=== PATIENT | female | born 1995 | race Hispanic/Latino ===

== ENCOUNTER 2025-01-21 09:03 | Inpatient (IN) | payer SELFPAY ==
[~2025-01-21] VITALS: Ht 157.5 cm; Wt 72.6 kg
--- NOTE | 2025-01-21 09:41 | EKG ---
[facility] Test Date: 2025-01-21 Test Time: 09:38:00 Pat Name: BERNABE BARNETT Department: [facility] Room: ED Gender: F Acid Loader: 0723 : 1995 Requested By: KAREN MAZARIEGOS Order Number: [id number] Reading MD: Richard Kerr Measurements Intervals [place] Rate: 60 P: 54 [place]: 137 QRS: 79 QRSD: 72 T: 44 QT: 389 QTc: 389 Interpretive Statements Sinus rhythm No previous ECG available for comparison Electronically Signed On 01-21-2025 17:33:39 CDT by Richard Kerr Please click the below link to view image of tracing.
[2025-01-21 10:00] LABS: BASOPHILS # (AUTO) 0.06 K/uL (0.00-0.20); BASOPHILS % (AUTO) 0.4 % (0.0-5.0); EOSINOPHILS # (AUTO) 0.04 K/uL (0.00-0.70); EOSINOPHILS % (AUTO) 0.3 % (0.0-8.0); HEMATOCRIT 41.2 % (36-48); IMMATURE GRANULOCYTE ABSOLUTE 0.04 K/uL (0-1); LYMPHOCYTES # (AUTO) 2.2 K/uL (1.0-4.8); LYMPHOCYTES % (AUTO) 16.4 % (21.0-51.0); MEAN CORPUSCULAR HEMOGLOBIN 28.3 pg (27.0-33.0); MEAN CORPUSCULAR HGB CONC 33.3 g/dL (32.0-36.0); MEAN CORPUSCULAR VOLUME 85.1 fL (79-99); MONOCYTES # (AUTO) 0.8 K/uL (0.1-1.0); MONOCYTES % (AUTO) 5.8 % (3.0-13.0); NEUTROPHILS # (AUTO) 10.3 K/uL (1.8-7.7); NEUTROPHILS % (AUTO) 76.8 % (40.0-77.0); PLATELET COUNT (AUTO) 360 K/uL (130-400); RED BLOOD CELL COUNT(AUTO) 4.84 MIL/uL (4.00-5.50); RED CELL DISTRIBUTION WIDTH 14.1 % (11.0-15.5); WHITE BLOOD COUNT (AUTO) 13.4 K/uL (4.8-10.8)
[2025-01-21 10:01] LABS: APPEARANCE,URINE CLEAR (CLEAR); BILIRUBIN,URINE NEGATIVE (NEGATIVE); COLOR,URINE LIGHT-YELLOW (YELLOW); GLUCOSE, URINE (UA) NEGATIVE (NEGATIVE); KETONES,URINE NEGATIVE (NEGATIVE); LEUKOCYTE ESTERASE ,URINE NEGATIVE Leu/uL (NEGATIVE); NITRATE,URINE 2+ (NEGATIVE); OCCULT BLOOD,URINE MODERATE (NEGATIVE); PROTEIN,URINE NEGATIVE (NEGATIVE); UROBILINOGEN,URINE 0.2 mg/dL (0.2-1.0)
[2025-01-21 10:04] LABS: ADD UA MICROSCOPIC YES
[2025-01-21 10:08] LABS: BACTERIA,URINE RARE /HPF (None Seen); MUCUS,URINE RARE LPF (None Seen); RBC,URINE 0-1 /HPF (0-1); SQUAMOUS EPITHELIAL CELL,UR RARE /HPF (0-2); WBC,URINE 0-1 /HPF (0-1)
[2025-01-21 10:11] LABS: CREATININE 0.5 mg/dL (0.5-1.0); POTASSIUM 3.7 mmol/L (3.5-5.1)
[2025-01-21 10:25] LABS: ALBUMIN 4.4 g/dL (3.5-5.0); BILIRUBIN,DIRECT 0.2 mg/dL (0.0-0.3); BILIRUBIN,TOTAL 1.2 mg/dL (0.2-1.0); TOTAL PROTEIN, SERUM 8.7 g/dL (6.0-8.3)
[2025-01-21 10:59] LABS: HCG,QUALITATIVE URINE POSITIVE (NEGATIVE)
--- NOTE | 2025-01-21 12:16 | HMCIMG ---
Exam Type: US OB <14 WEEKS Clinical Information: POSITIVE TEST, VAGINAL BLEEDING Comparison: None Findings: The uterus is normal in size and echogenicity. The endometrial lining is normal in thickness. No intrauterine or ectopic seen. The ovaries are normal in size and echogenicity. Vascular Doppler flow exam and spectral analysis of waveforms analysis is unremarkable bilaterally. There is preserved vascularity to both ovaries on Doppler evaluation. Specifically, there is no evidence of ovarian torsion. No free fluid is noted throughout the cul-de-sac. There are no adnexal abnormalities. No other significant abnormalities are seen. No fluid collections or masses or free fluid are identified in the pelvis. Impression: NORMAL EXAM. No evidence of uterine pathology. No evidence of adnexal abnormalities or ovarian torsion. No intrauterine or ectopic seen.
--- NOTE | 2025-01-21 12:24 | HMCIMG ---
Exam Type: US ABDOMINAL RUQ\E\LTD Clinical Information: RUQ abd pain r/o acute cholecystitis Comparison: None Findings: The liver shows normal echogenicity and size. No hepatic lesions are seen. Doppler evaluation shows patent portal and hepatic veins. The gallbladder shows cholelithiasis. No acute or chronic inflammation is noted. The gallbladder wall measures 3 mm No bile duct dilatation is noted. The common bile duct measures 4 mm. The right kidney measures 10.9 x 4.6 cm, and shows no hydronephrosis or calculi, masses or other abnormalities. The pancreas is suboptimally visualized. The aorta and inferior vena cava show no significant abnormalities. IMPRESSION: Cholelithiasis.
[2025-01-21] MEDS: acetaMINOPHEN 500 MG TABLET PO ONE (13:24)
--- NOTE | 2025-01-21 13:35 | ERN ---
General Chief Complaint: Abdominal Pain Stated Complaint: ABDOMINAL PAIN Time Seen by MD: 10:07 Time Seen by Midlevel: 10:07 Source: patient History of Present Illness Initial Comments The patient is a 29-year-old female with no significant past medical history presenting to the emergency department with right upper quadrant abdominal pain that has been ongoing since last night at a proximally a p.m.. The patient states her pain is in the epigastric region and radiates to her upper back. She also reports pain radiating up to her right shoulder. On arrival the pain is rated 10/10. She currently denies being and states she is on her menstrual cycle. Allergies: Coded Allergies: codeine (Unverified Allergy, Unknown, 01/21/25) Home Meds No Active Prescriptions or Reported Meds Past Medical History Past Medical History: Other Medical History Other: HX OF BLOODY STOOLS, COLON POLYPS Past Surgical History: None Female( History) LMP: January 15, 2025 ROS Dictation CONSTITUTIONAL: Negative except for HPI HEAD/FACE: Negative except for HPI EENT: Negative except for HPI RESPIRATORY: Negative except for HPI GASTROINTESTINAL/ABDOMINAL: Negative except for HPI GENITOURINARY: Negative except for HPI MUSCULOSKELETAL: Negative except for HPI INTEGUMENTARY: Negative except for HPI NEUROLOGICAL/PSYCH: Negative except for HPI HEMATOLOGIC/LYMPHATIC: Negative except for HPI All Systems Negative, Except as noted above. 13 point review of systems assessed and all negative except for above. Physical Exam Physical Exam Dictation Vital Signs reviewed General Appearance: Alert, oriented x 3, no acute distress, well developed, nourished. Head and Face: non-traumatic. Eyes: PERRL, pink conjunctivas, eyelid no trauma, anterior chamber with arcus senilis. Ears: Pinnas intact and no signs of trauma or erythema ear canals clear and no discharge TM no erythema Nose: No discharge, no bleeding. Oropharynx: Mouth normal, tongue pink, pharynx clear,no erythema, tonsils no exudates, no abscesses noted, mucous membrane moist Neck: Supple, non-tender, no thyromegaly, no masses, no JVD, no bruits Breast:Deferred Chest:No tenderness, no crepitus, no paradoxical movement, no retractions Lungs:Clear, well-ventilated, symmetric, no rales, no wheezing, no rhonchi, no stridor, good breath sounds bilaterally Heart: Regular rate, regular rhythm, no murmur, no gallops Vascular: no peripheral edema, Abdomen: Soft, positive bowel sounds, nondistended, no guarding, Right upper quadrant abdominal tenderness, no rebound, no masses no hepatomegaly, no splenomegaly, no Miller's sign, no hernias. Rectal: Deferred Genital: Deferred Neurological: Normal speech, motor function intact, sensory function intact Musculoskeletal: Neck nontender, full range of motion, back nontender, full range of motion, Extremities: nontender, full range of motion Skin: Color pink, dry, no turgor, no rash, no lacerations, no abrasions, no contusions. Lymphatic: Deferred Results Laboratory and Microbiology Lab and Micro Result Labs Reviewed?: Yes MDM MDM: The patient is a 29-year-old female with no significant past medical history presenting to the emergency department with right upper quadrant abdominal pain that has been ongoing since last night at a proximally a p.m.. The patient states her pain is in the epigastric region and radiates to her upper back. She also reports pain radiating up to her right shoulder. On arrival the pain is rated 10/10. She currently denies being and states she is on her menstrual cycle. On physical examination the patient appears uncomfortable secondary to pain. She has right upper quadrant/midepigastric abdominal tenderness with no rebound or guarding. Initial vital signs are stable. Abdominal workup was initiated. CBC shows leukocytosis with a left shift. Chemistries show a slightly elevated total bilirubin at 1.2 however the remainder of her blood work is unremarkable. She has a positive urine test. HCG quant was performed and it is 29. Both a pelvic ultrasound and a right upper quadrant ultrasound was performed. Pelvic ultrasound reveals a normal exam. No evidence of uterine pathology. No evidence of adnexal abnormalities or ovarian torsion. There was also no evidence of intrauterine or ectopic seen. A right upper quadrant ultrasound was performed. After the test was performed the invasive cardiovascular technologist informed me that there is a gallstone stuck in the gallbladder neck with gallbladder distention concerning for acute cholecystitis. The official report resulted which revealed cholelithiasis however patient is clinically in a lot of pain. On re-examination her pain is 8/10. She was given 1 g of Tylenol and will be admitted for further observation and management. Patient was also started on 1 g of ceftriaxone IV given that she has a urinary tract infection. Differential diagnosis: Rationale: Tests considered and ordered secondary to shared decision making include: Previous outside records reviewed: Old ER visits. Risk of complication and/or morbidity or mortality of patient management: None Medications-Per medication reconciliation Need for hospitalization: Patient does meet criteria for hospitalization. Need for emergency major/minor surgery: No There are no social concerns with this patient. Prescription drug management Prescriptions will include symptomatic care Patient's prior external medical records from other ER visits were reviewed by me as indicated. Prior testing and results from previous visits were reviewed. Prior tests were taken into account with medical decision making and resource utilization, independent historian/historians were used to obtain complete medical history. I independently interpreted the test that were performed, results were reviewed by me and considered findings on radiology if ordered. Medical management and examination interpretation discussions were had by me with other qualified healthcare professionals as indicated for the patient's care. ED Course [address] [id number] IMAGING REPORT Signed PATIENT: BERNABE BARNETT MR#: [id number] : 1995 SEX: F AGE: 29 LOCATION: [facility] ORDER 28 STATUS: [facility] REPORT#: [id number] SERVICE 26 REASON: POSITIVE TEST, VAGINAL BLEEDING ORDERING PHYSICIAN: ASHLI APARICIO PROCEDURE: OB <14 - US OB <14 WEEKS Exam Type: US OB <14 WEEKS Clinical Information: POSITIVE TEST, VAGINAL BLEEDING Comparison: None Findings: The uterus is normal in size and echogenicity. The endometrial lining is normal in thickness. No intrauterine or ectopic seen. The ovaries are normal in size and echogenicity. Vascular Doppler flow exam and spectral analysis of waveforms analysis is unremarkable bilaterally. There is preserved vascularity to both ovaries on Doppler evaluation. Specifically, there is no evidence of ovarian torsion. No free fluid is noted throughout the cul-de-sac. There are no adnexal abnormalities. No other significant abnormalities are seen. No fluid collections or masses or free fluid are identified in the pelvis. Impression: NORMAL EXAM. No evidence of uterine pathology. No evidence of adnexal abnormalities or ovarian torsion. No intrauterine or ectopic seen. DICTATED BY: GIAN PANDEY MD DATE: 01/21/251210 ELECTRONICALLY SIGNED BY: GIAN PANDEY MD DATE: 01/21/251215 DX & DISP Disposition: Inpatient Departure Impression: Primary Impression: Cholelithiasis Additional Impression: Urinary tract infection Condition: Stable Scripts No Active Prescriptions or Reported Meds Referrals: RICCI ALONSO DAIRY GRAZER (PCP) I have reviewed the case, and I agree with, Diagnosis and Plan I performed the substantive portion of the visit. I have reviewed and personally made and approve the management plan that is documented in the note by myself or the [place]. I acknowledge for responsibility for the patient's management plan. ASHLI APARICIO January 21, 2025 13:35 KAREN MAZARIEGOS DO January 22, 2025 07:55
[2025-01-21] MEDS: cefTRIAXone 1G VIAL IVPB ONE (14:00)
[2025-01-21] MEDS: 0.9%NACL 1000ML 1,000 ML IV ONE (14:00)
--- NOTE | 2025-01-21 15:57 | NUR ---
second attempt to contact [facility] no answer at this time
[2025-01-21] MEDS ORDERED: GLUCAGON 1MG KIT 1 MG ML IM PRN (16:00)
[2025-01-21] MEDS ORDERED: acetaMINOPHEN 325 MG TAB PO PRN ×3 (16:00)
[2025-01-21] MEDS ORDERED: PoTASSium chl 10% ELIXIR 20MEQ 20 MEQ/15 ML UDCUP PO PRN (16:00)
[2025-01-21] MEDS ORDERED: DEXTROSE 50%-WATER 50 ML DISP.SYRIN IV PRN (16:00)
[2025-01-21] MEDS ORDERED: PoTASSium chloRIDE 10MEQ SR 10 MEQ/TAB TAB.SR.24H PO PRN (16:00)
[2025-01-21] MEDS ORDERED: morPHINE 2 MG SYG IVP PRN (16:00)
[2025-01-21] MEDS ORDERED: guaiFENesin-DM 200/20MG 10ML PO PRN (16:00)
[2025-01-21] MEDS ORDERED: LACTULOSE 20 GM/30 ML UDCUP PO PRN (16:00)
[2025-01-21] MEDS ORDERED: MAG/ALUM/SIMETH 30 ML UDCUP PO PRN (16:00)
[2025-01-21] MEDS ORDERED: ondanSETRON 4MG INJ IV PRN (16:00)
[2025-01-21] MEDS ORDERED: NITROGLYCERIN 0.4 MG SL TAB SL PRN (16:00)
[2025-01-21] MEDS ORDERED: DiphenhydrAMINE HCL 50 MG/ML VIAL IV PRN (16:00)
[2025-01-21] MEDS ORDERED: MAGNESIUM 2GM PREMIX 50ML 50 ML IV PRN (16:00)
[2025-01-21] MEDS ORDERED: ZOLPidem TARTrate 5 MG TAB PO PRN (16:00)
[2025-01-21] MEDS ORDERED: FAMOTIDINE 20MG VIAL IV PRN (16:00)
[2025-01-21] MEDS ORDERED: ketOROlac 15MG/ML VIAL (15MG/ML) IV PRN (16:00)
[2025-01-21] MEDS ORDERED: hydrALAZine 20MG/ML VIAL IV PRN (16:00)
[2025-01-21] MEDS ORDERED: cefTRIAXone 1G VIAL 2 GM in 0.9%NACL 100ML 100 ML IV SCH (16:00)
[2025-01-21] MEDS ORDERED: PoTASSium chloRIDE 10MEQ/100ML 100 ML IV PRN (16:00)
--- NOTE | 2025-01-21 16:14 | HP ---
[facility] HISTORY AND PHYSICAL Date of Service: January 21, 2025 Time of Service: 16:05 PCP:Dr Stacy Earl Admitting: Dr Sharpe, Allergies: No Allergy Information Available, No Known Drug Allergies HISTORY OF PRESENT ILLNESS: [ Patient is 29 years old female with a past medical history of gestational diabetes, colon polyps, who came to emergency department with a complaint of of per quadrant abdominal pain radiating to her back to the right. Patient stated that this has been going on since last night that started afternoon and about 9:00 p.m. she took a Motrin but unfortunately did not help to relieve the pain. Patient repeated Motrin again about 11:00 p.m. but still discomfort state. Patient denies any urinary problems. Pain on arrival was 10/10. At this moment patient denies any shortness of breath, chest pain, nausea, vomiting or abdominal pain but she believes it is due to medication that she received in ER. Patient's test was positive with the patient stated that she is on her menstrual cycle at this moment. Patient is on six day today were normally her menstruation last 7 to 8 days. Patient denies any abnormalities with her menstruation. Most recent vital signs temperature 97.9 pulse 60 respiration 18 blood pressure 105/60 patient is on room air satting 100%. Sodium 142 potassium 3.7 GFR 132 creatinine 0.5 BUN nine bilirubin 1.2 AST 21 ALT 31 troponin negative x1 albumin 4.4 lipase 32 UA positive for leukocytosis. WBC 13.4 hemoglobin 13.7 hematocrit 41.2 platelets 360 Ultrasound abdomen showed cholelithiasis. Ob ultrasound showed no intrauterine or ectopic seen. Normal exam. Patient will be admitted under hospitalist care for further evaluation/recommendations. REVIEW OF SYSTEMS CONSTITUTIONAL: Denies fevers, chills, or night sweats. No unintentional weight loss reported. NEUROLOGICAL: Denies headache, amaurosis fugax, motor weakness, sensory deficit, vertigo/spinning sensation, gait abnormalities, or tremors. ENT: No hearing loss, otalgia, otorrhea, rhinitis, rhinorrhea, hoarseness, or sore throat. CARDIOVASCULAR: Denies any exertional angina, dyspnea on exertion, orthopnea, paroxysmal nocturnal dyspnea, palpitations, life-threatening arrhythmias, claudication. PULMONARY: Denies any shortness of breath, cough, phlegm/sputum, hemoptysis, pleuritic chest pain. SLEEP: Denies morning headaches, daytime somnolence or napping. Denies difficulty falling asleep, staying asleep, waking from sleep. Denies knowledge of snoring. GASTROINTESTINAL: Denies any type of dysphagia to either liquids or solids. Denies nausea, vomiting, pyrosis, early satiety, , diarrhea, constipation, or changes in stool consistency or caliber. Denies coffee-ground emesis, he matemesis, hematochezia, or melanotic stools. Complains of right upper quadrant abdominal pain radiating to her back GENITOURINARY: Denies frequency, urgency, nocturia, hematuria or incontinence (Storage/Irritative symptoms.) Low urinary stream, straining to void, urinary intermittency or hesitancy, splitting of the voiding stream, terminal dribbling. ENDOCRINOLOGIC: Denies polyuria, polydipsia, polyphagia or heat/cold intolerances. HEMATOLOGIC: Denies thrombophilia/previous clots, or coagulopathy/bleeding disorders. ONCOLOGIC: Denies personal history of malignancy. DERMATOLOGIC: Denies rashes or pruritus. PSYCHIATRIC: Denies any suicidal or homicidal ideation. Denies hallucinations. PAST MEDICAL HISTORY: [ Gestational diabetes, colon polyps ] PAST SURGICAL HISTORY: [ None ] PAST SOCIAL HISTORY: [ Patient denies smoking. Patient denies any drug illicit. Patient denies alcohol use ] FAMILY HISTORY: [ Patient lives at an with her and a child. Patient is independent ] Coded Allergies: codeine (Unverified Allergy, Unknown, 01/21/25) PHYSICAL EXAM GENERAL APPEARANCE: The patient is awake, alert, and oriented, in no acute cardiopulmonary distress. NEUROLOGICAL: Cranial nerves II-XII grossly intact. Motor is 5/5 in bilateral upper and lower extremities proximal to distal. No sensory deficits. HEENT: Face is symmetric. Pupils are equal and reactive. Extraocular movements are intact. NECK: Supple. No JVD. No thyromegaly. No submental, submandibular, pre- /postauricular, occipital or supraclavicular lymphadenopathy. CHEST: Normal chest expansion. No Telemetry. LUNGS: Absence of any rales, rhonchi or any wheezing. CARDIOVASCULAR: Regular. S1 and S2 normal. No appreciable rubs, murmurs or gallops. ABDOMEN: Soft, nontender, and nondistended. There is no rebound, voluntary guarding, or rigidity. : Deferred. No [place]orman. EXTREMITIES: Non-edematous and not cyanotic. No clubbing. Good capillary refill. SKIN: No skin breakdown. Vital Sign (Last 24 Hours) 01/21/25 15:38 Temp 97.9 Pulse 60 Resp 18 B/P (MAP) 105/60 Pulse Ox 100 O2 Delivery Room Air* O2 Flow Rate 0 FiO2 21 LABS: Laboratory: Test 01/21/25 11:20 01/21/25 09:37 Range/Units Human Chorionic Gonadotropin, Quant 29 H 0-5 mIU/mL White Blood Count 13.4 H 4.8-10.8 K/uL Red Blood Count 4.84 4.00-5.50 MIL/uL Hemoglobin 13.7 12.0-16.0 g/dL Hematocrit 41.2 36-48 % Mean Corpuscular Volume 85.1 79-99 fL Mean Corpuscular Hemoglobin 28.3 27.0-33.0 pg Mean Corpuscular Hemoglobin Concent 33.3 32.0-36.0 g/dL Red Cell Distribution Width 14.1 11.0-15.5 % Platelet Count 360 130-400 K/uL Mean Platelet Volume 9.7 7.5-10.5 fL Immature Granulocyte % (Auto) 0.3 0-1 % Neutrophils (%) (Auto) 76.8 40.0-77.0 % Lymphocytes (%) (Auto) 16.4 L 21.0-51.0 % Monocytes (%) (Auto) 5.8 3.0-13.0 % Eosinophils (%) (Auto) 0.3 0.0-8.0 % Basophils (%) (Auto) 0.4 0.0-5.0 % Neutrophils # (Auto) 10.3 H 1.8-7.7 K/uL Lymphocytes # (Auto) 2.2 1.0-4.8 K/uL Monocytes # (Auto) 0.8 0.1-1.0 K/uL Eosinophils # (Auto) 0.04 0.00-0.70 K/uL Basophils # (Auto) 0.06 0.00-0.20 K/uL Absolute Immature Granulocyte (auto 0.04 0-1 K/uL Nucleated Red Blood Cells 0.0 0.0-0.19 % Urine Color LIGHT-YELLOW YELLOW Urine Appearance CLEAR CLEAR Urine pH 7.0 5.0-8.0 Urine Specific Sophia 1.012 1.001-1.031 Urine Protein NEGATIVE NEGATIVE mg/dL Urine Glucose (UA) NEGATIVE NEGATIVE mg/dL Urine Ketones NEGATIVE NEGATIVE mg/dL Urine Occult Blood MODERATE H NEGATIVE Urine Nitrate 2+ H NEGATIVE Urine Bilirubin NEGATIVE NEGATIVE mg/dL Urine Urobilinogen 0.2 0.2-1.0 mg/dL Urine Leukocyte Esterase NEGATIVE NEGATIVE Arely/uL Urine RBC 0-1 0-1 /HPF Urine WBC 0-1 0-1 /HPF Urine Squamous Epithelial Cells RARE 0-2 /HPF Urine Bacteria RARE None Seen /HPF Urine HCG, Qualitative POSITIVE H NEGATIVE Sodium Level 142 136-145 mmol/L Potassium Level 3.7 3.5-5.1 mmol/L Chloride Level 104 101-111 mmol/L Carbon Dioxide Level 27 21-32 mmol/L Blood Urea Nitrogen 9 7-18 mg/dL Creatinine 0.5 0.5-1.0 mg/dL Glomerular Filtration Rate Calc 132 >90 mL/min Random Glucose 94 70-105 mg/dL Total Calcium 9.6 8.5-10.1 mg/dL Total Bilirubin 1.2 H 0.2-1.0 mg/dL Direct Bilirubin 0.2 0.0-0.3 mg/dL Aspartate Amino Transf (AST/SGOT) 21 10-37 U/L Alanine Aminotransferase (ALT/SGPT) 31 12-78 U/L Alkaline Phosphatase 132 50-136 U/L Troponin I High Sensitivity < 4 L 4-50 ng/L Total Protein 8.7 H 6.0-8.3 g/dL Albumin 4.4 3.5-5.0 g/dL Lipase 32 16-77 U/L Current Medications Medications (Trade) Dose Ordered Sig/Jorge L Route PRN Reason Start Time Stop Time Status Last Admin Dose Admin Acetaminophen (TYLenol 325MG TAB) 650 mg Q4H PRN PO MILD PAIN (1-3) 01/21/25 16:00 02/20/25 15:59 Acetaminophen (TYLenol 325MG TAB) 650 mg Q6H PRN PO MILD PAIN (1-3) 01/21/25 16:00 01/21/25 15:56 DC Acetaminophen (TYLenol 325MG TAB) 650 mg Q6H PRN PO TEMPERATURE GREATER THAN 101.5 01/21/25 16:00 02/20/25 15:59 Al Hydroxide/Mg Hydroxide (MAALox PLUS 30ML) 30 ml Q6H PRN PO INDIGESTION 01/21/25 16:00 02/20/25 15:59 Ceftriaxone Sodium 2 gm/ Sodium Chloride 100 ml @ 200 mls/hr Q24H IV 01/21/25 16:00 01/21/25 15:56 DC Ceftriaxone Sodium (Rocephin 2gm Inj) 2 gm Q24H IVPB 01/21/25 16:00 01/31/25 15:59 Dextrose (D50w) 50 ml AD PRN IV HYPOGLYCEMIA PROTOCOL 01/21/25 16:00 02/20/25 15:59 Diphenhydramine HCl (BENAdryl INJ) 25 mg Q6H PRN IV SEVERE ITCHING/RASH 01/21/25 16:00 02/20/25 15:59 Famotidine (Pepcid 20mg Vial) 20 mg BID IV 01/21/25 21:00 02/20/25 20:59 Famotidine (Pepcid 20mg Vial) 20 mg BID PRN IV NAUSEA/VOMITING 01/21/25 16:00 01/21/25 15:56 DC Glucagon (Glucagon 1mg Kit) 1 mg AD PRN IM HYPOGLYCEMIA PROTOCOL 01/21/25 16:00 02/20/25 15:59 Guaifenesin/ Dextromethorphan (RobiTUSSin DM 200/20MG 10ML) 10 ml Q4H PRN PO COUGH 01/21/25 16:00 02/20/25 15:59 Hydralazine HCl (APRESOLine 20MG INJ) 10 mg Q6H PRN IV For:SBP above 160;DBP above 90 01/21/25 16:00 02/20/25 15:59 Insulin Human Regular (humuLIN R 100 UNIT/ML 3ML) INSULIN SLIDING SCAL... ACHS SQ 01/21/25 16:30 02/20/25 16:29 Ketorolac Tromethamine (toRADol) 15 mg Q8H PRN IV MODERATE PAIN (4-6) 01/21/25 16:00 01/26/25 15:59 Lactulose (Constulose 20gm/ 30ml Udcup) 20 gm BID PRN PO CONSTIPATION 01/21/25 16:00 02/20/25 15:59 Magnesium Sulfate 50 ml @ 0 mls/hr PROTOCOL PRN IV other 01/21/25 16:00 02/20/25 15:59 Morphine Sulfate (morPHINE 2MG SYG) 1 mg Q4H PRN IVP SEVERE PAIN (7-10) 01/21/25 16:00 01/28/25 15:59 Nitroglycerin (Nitrostat) 0.4 mg PROTOCOL PRN SL CHEST PAIN 01/21/25 16:00 02/20/25 15:59 Ondansetron HCl (zoFRAN 4MG INJ) 4 mg Q6H PRN IV NAUSEA/VOMITING 01/21/25 16:00 02/20/25 15:59 Potassium Chloride 100 ml @ 100 mls/hr AD PRN IV POTASSIUM PROTOCOL 01/21/25 16:00 02/20/25 15:59 Potassium Chloride (K-Dur 10meq Sr Tab) 10 meq AD PRN PO POTASSIUM PROTOCOL 01/21/25 16:00 02/20/25 15:59 Potassium Chloride (KCl 10% Elixir 20meq/15ml) 10 meq AD PRN PO POTASSIUM PROTOCOL 01/21/25 16:00 02/20/25 15:59 Sodium Chloride 1,000 ml @ 100 mls/hr Q10H IV 01/21/25 16:00 02/20/25 15:59 Zolpidem Tartrate (AmbIEN) 5 mg HS PRN PO INSOMNIA 01/21/25 16:00 02/20/25 15:59 DIAGNOSTICS / RADIOLOGY: [ ] ASSESSMENT: [ Suspect Acute cholecystitis POA Acute cholelithiasis POA Acute complicated cystitis POA Electrolyte imbalance hypokalemia K3.7 Leukocytosis POA History of gestational diabetes History of colon polyps ] PLAN: [ Admit to: Medical-surgical floor Consults: General surgeon Antibiotics: Rocephin Tests: HIDA scan, CT abdomen/pelvis NEURO: Minimize central acting medications as possible. Fall Precautions. Well lighted room through the day and minimize interruptions through the night to prevent acute delirium. PULMONARY: Supplemental 02 as needed BiPAP as necessary, for respiratory distress Titrate Fio2 to keep Spo2 > or = 90% DuoNebs and CPT as needed IS hourly while awake for pulmonary hygiene Out of bed to chair as tolerated VAP Bundle Maintain aspiration precautions at all times CARDIOVASCULAR: Follow hemodynamics. Vital signs per facility protocol GI & NUTRITION: HIDA scan pending CT abdomen/pelvis pending Ultrasound abdomen cholelithiasis, cholecystitis Ultrasound uterus negative Continue nutritional support Aspirations precautions Prokinetic agents and laxatives as needed KIDNEYS & ELECTROLYTES: Strict monitoring of intake and output Daily weights Avoid nephrotoxic agents Monitor electrolytes and replace as needed Goal urine output of 30mL/hr or 0.5mL/kg/hr Medications to be dosed according to renal function. Avoid contrast if possible ENDOCRINE: Maintain blood glucose between 100-180 at all times. Insulin sliding scale for blood glucose management Hypoglycemia and hyperglycemia protocol in place INFECTIOUS DISEASE: Trend temperature, WBC and procalcitonin level Follow cultures, deescalate antibiotics as soon as possible. Panculture if new onset fever HEMATOLOGY & COAGULATION: Monitor H&H. Keep Hgb > 7 Transfuse 1 unit of PRBC for Hgb < 7 Transfuse 1 pack of platelets of platelets < 20, 000 Watch for any signs and symptoms of bleeding SKIN: Pressure ulcer prevention per facility protocol Specialty mattress as needed Treatment plan discussed with patient and family at the bedside Medications to be reconciled once obtained by patient and/or family and available to be reconciled in computer p.r.n. medication for pain nausea and vomiting Questions were answered We will continue to monitor the patient closely Covered Button Maker for disposition Rehab: PT/OT GI: PPI DVT: SCD's Code Status: Full Resuscitation Disposition: TBD Prognosis: Guarded ] ADVANCED CARE PLANNING 1. Which of the following were discussed? Hospice Care - Yes / No Therapeutic options - Yes / No Advance Directives - Yes / No Other discussions - 2. Discussed with who? Patient 3. Voluntary nature of this service was explained to the patient? Yes / No 4. Amount of time spent - ___ more than 35 minutes ____ 5. Reviewed by Physician? (if this service was performed by NPP) Yes / No ADDENDUM: ATTENDING PHYSICIAN ATTESTATION: I have reviewed the midlevel's plan. I have independently seen, reviewed the chart and made my own assessment of the patient. See my addendum for updates to the midlevel's medical plan MD REBECCA Bourne KATARZYNA B EXTR[employer]ION DIE REPAIRER January 21, 2025 16:14 FATEMEH SHARPE MD January 23, 2025 14:10
--- NOTE | 2025-01-21 16:16 | NUR ---
spoke with juan diego jo and informed him op pend order and fasting status
[2025-01-21] MEDS: INSULIN humuLIN R 100 UNIT/ML 3ML SQ SCH (16:30)
--- NOTE | 2025-01-21 16:58 | NUR ---
miscommunication by BANDER AND CELLOPHANER MACHINE Luis informed pt ok to eat contacted [facility] and advised them of intake and was advised by juan diego gutierrez to be completed tomorrow
--- NOTE | 2025-01-21 17:00 | HMCIMG ---
Exam Type: CT ABDOMEN/PELVIS W/O CONTRAST Clinical Information: cholecystitis Comparison: None CT Dose Index (CTDI): 10.20 mGy Dose Length Product (DLP): 530.00 total mGy-cm PROTOCOL: Routine noncontrast helical scanning of the abdomen and pelvis was performed at 5mm collimation. Findings: No evidence of nephro or ureterolithiasis is found. No hydronephrosis or ureteral dilatation is seen. The lung bases are clear. The stomach is unremarkable. It shows no wall thickening. No gross ulceration is seen. It is not overly distended. There are no surrounding inflammatory changes. No wall lesions are identified to suggest cancer. The spleen is unremarkable. It is not enlarged. The pancreas shows normal anatomy. It is not fatty replaced. It shows no lesions. The pancreatic duct is not dilated. Cholelithiasis without hydropic gallbladder. No pericholecystic fluid or gallbladder wall thickening to suggest inflammatory change. The adrenal glands are unremarkable. There is no enlargement. No lesions are noted. The liver is unremarkable. It shows no focal masses. The appendix is unremarkable. It shows no evidence of inflammation. No appendicolith is seen. The small bowel is unremarkable. There is no evidence of dilatation to suggest obstruction. No evidence of adynamic ileus is seen. There is no small bowel wall thickening to suggest enteritis. The colon is unremarkable. The urinary bladder is unremarkable. There is no wall thickening to suggest tumor or inflammation. There are no intraluminal calculi. There are no diverticula. There is no evidence of chronic bladder outlet obstruction. There is no evidence of urinary bladder distention to suggest urinary retention. The other pelvic structures are unremarkable. The bony and vascular structures are unremarkable for the patient's age. IMPRESSION: Cholelithiasis without hydropic gallbladder. This study was performed using dose reduction techniques to include automated exposure control and/or adjustment of the mA and/or kV according to patient size.
[2025-01-21] MEDS: cefTRIAXone 2GM VIAL IVPB SCH (17:02)
[2025-01-21] MEDS: PoTASSium chloRIDE 20MEQ ER 20 MEQ ERTAB PO ONE (17:02)
[2025-01-21] MEDS: 0.9%NACL 1000ML 1,000 ML IV SCH (17:02)
[2025-01-21 17:45] VITALS: BP 109/76; PULSE 76; RESP 18; TEMP 97.4
--- NOTE | 2025-01-21 17:45 | NUR ---
arrived from ER patient alert and oriented x4, family at bedside, vitals stable on room air, "abdominal discomfort, but mild", denies need for pain medication at this time
[2025-01-21 19:33] VITALS: O2SAT 95
[2025-01-21 19:55] VITALS: O2SAT 98
[2025-01-21] MEDS: FAMOTIDINE 20MG VIAL IV SCH (19:58)
[2025-01-21 20:00] VITALS: BP 107/62; PULSE 89; RESP 18; TEMP 97.6
[2025-01-21 21:15] VITALS: BP 108/71; PULSE 88
[2025-01-22] VITALS (7 sets, daily range): BP systolic 104–118; BP diastolic 51–70; PULSE 68–82; RESP 17–20; TEMP 97.9–98.9; O2SAT 99
[2025-01-22 04:33] LABS: BASOPHILS # (AUTO) 0.05 K/uL (0.00-0.20); BASOPHILS % (AUTO) 0.7 % (0.0-5.0); EOSINOPHILS # (AUTO) 0.11 K/uL (0.00-0.70); EOSINOPHILS % (AUTO) 1.5 % (0.0-8.0); HEMATOCRIT 33.8 % (36-48); IMMATURE GRANULOCYTE ABSOLUTE 0.04 K/uL (0-1); LYMPHOCYTES % (AUTO) 27.6 % (21.0-51.0); MEAN CORPUSCULAR HEMOGLOBIN 28.7 pg (27.0-33.0); MEAN CORPUSCULAR HGB CONC 33.1 g/dL (32.0-36.0); MEAN CORPUSCULAR VOLUME 86.7 fL (79-99); MONOCYTES # (AUTO) 0.8 K/uL (0.1-1.0); MONOCYTES % (AUTO) 10.8 % (3.0-13.0); NEUTROPHILS # (AUTO) 4.2 K/uL (1.8-7.7); NEUTROPHILS % (AUTO) 58.8 % (40.0-77.0); PLATELET COUNT (AUTO) 299 K/uL (130-400); RED CELL DISTRIBUTION WIDTH 14.4 % (11.0-15.5); WHITE BLOOD COUNT (AUTO) 7.2 K/uL (4.8-10.8)
[2025-01-22 04:37] LABS: HEMOGLOBIN A1C 5.3 % (4.0-6.0)
[2025-01-22 04:50] LABS: ALBUMIN 3.3 g/dL (3.5-5.0); BILIRUBIN,DIRECT 0.1 mg/dL (0.0-0.3); BILIRUBIN,TOTAL 0.8 mg/dL (0.2-1.0); CREATININE 0.6 mg/dL (0.5-1.0); POTASSIUM 4.8 mmol/L (3.5-5.1); TOTAL PROTEIN, SERUM 6.8 g/dL (6.0-8.3)
--- NOTE | 2025-01-22 09:22 | NUR ---
RAD HIDA SCAN: PER KEVIN PAYNE, EXAM ON HOLD. HCG WILL BE REPEATED. KIRTI
--- NOTE | 2025-01-22 09:58 | NUR ---
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 Pt reports she lives a home with her [phone]. Pt states she is independent of all her ADLS, drives, active, uses no DME to in home care services. PCP is Stacy Brandon and uses [facility] for rx needs. Pt and deny dc needs and will report home at ga. Addendum: 01/22/25 at 1003 by ANASTASIIA BARTLETT SS Amended: Links added.
[2025-01-22] MEDS: ZOSYN 3.375GM +NS 50ML IV SCH (11:32)
--- NOTE | 2025-01-22 11:43 | NUR ---
RAD HIDA SCAN: @ 1143HRS PER KEVIN PAYNE; PT IS REFUSING HIDA SCAN NO MATTER WHAT THE HCG RESULTS TURNED OUT. DG
[2025-01-22] MEDS: DEXTROSE 50%-WATER 50 ML DISP.SYRIN IV ONE (13:33)
[2025-01-22] MEDS: DEXTROSE 5 %-0.45 % NACL 1,000 ML IV SCH (13:34)
--- NOTE | 2025-01-22 16:28 | CONS ---
CONSULT NOTE: Consulting physician:Dr Stack Consulting service: General surgery Reason for consultation: Cholelithiasis History of present illness: This is a 29-year-old female with a medical history listed below that has been consulted to surgery after presenting to the hospital with the upper quadrant pain radiating to her back that began yesterday at nine in the evening. Due to continued discomfort patient presented to the hospital for further evaluation. Upon initial workup patient noted to have positive hCG quant and urinalysis as well as blood draws. Patient reports currently spotting. OBGYN has also been consulted for evaluation. Since admission patient has been made NPO but reporting no abdominal pain on physical exam. WBCs initially elevated on presentation but now down to normal. LFTs unremarkable. Patient currently NPO Medical history: PAST MEDICAL HISTORY: Gestational diabetes, colon polyps PAST SURGICAL HISTORY: None PAST SOCIAL HISTORY: Patient denies smoking. Patient denies any drug illicit. Patient denies alcohol use FAMILY HISTORY: Patient lives at an with her and a child. Patient is independent Coded Allergies: codeine (Unverified Allergy, Unknown, 01/21/25) Review of systems: General: No Fever, No Chills, No Night Sweats, No Fatigue, No Malaise, No Appetite, No Other HEENT: No Head Aches, No Visual Changes, No Eye Pain, No Ear Pain, No Dysphasia, No Sinus Congestion, No Post Nasal Drip, No Sore Throat, No Other Pulmonary: No Dyspnea, No Cough, No Pleuritic Chest Pain, No Other Cardiovascular: No: Chest Pain, Palpitations, Orthopnea, Paroxysmal No Dyspnea, Edema, Lt Headedness, Other Gastrointestinal: No: Nausea, Vomiting, Diarrhea, Constipation, Melena, Hematochezia, Other Genitourinary: No Dysuria, No Frequency, No Incontinence, No Hematuria, No Retention, No Other Musculoskeletal: No: other, neck pain, shoulder pain, arm pain, back pain, hand pain, leg pain, foot pain Skin: No Urticaria, No Rash, No Other Neurological: No: Weakness, Numbness, Incoordination, Change in speech, Confusion, Seizures, Other Physical exam: General: Awake alert and oriented Heart: Regular rate and rhythm} Lungs: Clear to auscultation no distress Abdomen: [Soft, nontender, nondistended No abdominal pain on exam Assessment: This is a 29-year-old female with concerns of possible early gestation with possible symptomatic cholelithiasis Plan: This point in time we will await for OBGYN input Surgery would like to order HIDA scan if patient becomes symptomatic but at this point showing no signs of cholecystitis with no discomfort on abdominal exam so we will hold and wait on OBGYN recommendation From surgical standpoint patient cleared to start diet SARAH SUE Jr. January 22, 2025 16:28
--- NOTE | 2025-01-22 18:24 | PN ---
[facility] PROGRESS NOTE Date of Service: January 22, 2025 Time of Service: 18:02 SUBJECTIVE: 01/22 patient seen at bedside, no acute events overnight. Patient asymptomatic today. General surgery recommendations still pending. Quantitative HCG with slight uptrend from yesterday to today, will repeat again tomorrow. Patient believes she had miscarriage, however if uptrend continues will recommend she follow up with her OBGYN. If patient remains asymptomatic tomorrow, will likely discharge home to follow up outpatient for elective cholecystectomy. REVIEW OF SYSTEMS 12 point ROS negative unless noted in HPI PHYSICAL EXAM GENERAL APPEARANCE: The patient is awake, alert, and oriented, in no acute cardiopulmonary distress. NEUROLOGICAL: Cranial nerves II-XII grossly intact. Motor is 5/5 in bilateral upper and lower extremities proximal to distal. No sensory deficits. HEENT: Face is symmetric. Pupils are equal and reactive. Extraocular movements are intact. NECK: Supple. No JVD. No thyromegaly. No submental, submandibular, pre- /postauricular, occipital or supraclavicular lymphadenopathy. CHEST: Normal chest expansion. No Telemetry. LUNGS: Absence of any rales, rhonchi or any wheezing. CARDIOVASCULAR: Regular. S1 and S2 normal. No appreciable rubs, murmurs or gallops. ABDOMEN: Soft, nontender, and nondistended. There is no rebound, voluntary guarding, or rigidity. : Deferred. No Dorman. EXTREMITIES: Non-edematous and not cyanotic. No clubbing. Good capillary refill. SKIN: No skin breakdown. Vital Signs (last 8hr) Date Time Temp Pulse Resp B/P (MAP) Pulse Ox O2 Delivery O2 Flow Rate FiO2 01/22/25 16:27 98.4 77 18 104/67 99 Room Air 01/22/25 11:50 99.0 72 19 117/60 100 Room Air LABS: Laboratory: Test 01/22/25 16:10 01/22/25 10:15 01/22/25 04:07 01/21/25 09:37 Range/Units Whole Blood Glucose 72 70-110 MG/DL Urine HCG, Qualitative POSITIVE H NEGATIVE White Blood Count 7.2 # 4.8-10.8 K/uL Red Blood Count 3.90 L 4.00-5.50 MIL/uL Hemoglobin 11.2 L 12.0-16.0 g/dL Hematocrit 33.8 L 36-48 % Mean Corpuscular Volume 86.7 79-99 fL Mean Corpuscular Hemoglobin 28.7 27.0-33.0 pg Mean Corpuscular Hemoglobin Concent 33.1 32.0-36.0 g/dL Red Cell Distribution Width 14.4 11.0-15.5 % Platelet Count 299 130-400 K/uL Mean Platelet Volume 9.6 7.5-10.5 fL Immature Granulocyte % (Auto) 0.6 0-1 % Neutrophils (%) (Auto) 58.8 40.0-77.0 % Lymphocytes (%) (Auto) 27.6 21.0-51.0 % Monocytes (%) (Auto) 10.8 3.0-13.0 % Eosinophils (%) (Auto) 1.5 0.0-8.0 % Basophils (%) (Auto) 0.7 0.0-5.0 % Neutrophils # (Auto) 4.2 1.8-7.7 K/uL Lymphocytes # (Auto) 2.0 1.0-4.8 K/uL Monocytes # (Auto) 0.8 0.1-1.0 K/uL Eosinophils # (Auto) 0.11 0.00-0.70 K/uL Basophils # (Auto) 0.05 0.00-0.20 K/uL Absolute Immature Granulocyte (auto 0.04 0-1 K/uL Nucleated Red Blood Cells 0.0 0.0-0.19 % Sodium Level 141 136-145 mmol/L Potassium Level 4.8 3.5-5.1 mmol/L Chloride Level 108 101-111 mmol/L Carbon Dioxide Level 27 21-32 mmol/L Blood Urea Nitrogen 9 7-18 mg/dL Creatinine 0.6 0.5-1.0 mg/dL Glomerular Filtration Rate Calc 126 >90 mL/min Random Glucose 101 70-105 mg/dL Hemoglobin A1c 5.3 4.0-6.0 % Estimated Average Glucose (eAG) 105 70-126 mg/dL Lactic Acid Level 0.9 0.8-2.5 mmol/L Total Calcium 8.4 L 8.5-10.1 mg/dL Magnesium Level 2.00 1.80-2.40 mg/dL Total Bilirubin 0.8 # 0.2-1.0 mg/dL Direct Bilirubin 0.1 # 0.0-0.3 mg/dL Aspartate Amino Transf (AST/SGOT) 19 10-37 U/L Alanine Aminotransferase (ALT/SGPT) 23 # 12-78 U/L Alkaline Phosphatase 106 50-136 U/L Total Creatine Kinase 49 21-232 U/L B-Type Natriuretic Peptide 15 0-100 pg/mL Total Protein 6.8 # 6.0-8.3 g/dL Albumin 3.3 #L 3.5-5.0 g/dL Procalcitonin < 0.05 L 0.05-0.5 ng/mL Human Chorionic Gonadotropin, Quant 32 H 0-5 mIU/mL Urine Color LIGHT-YELLOW YELLOW Urine Appearance CLEAR CLEAR Urine pH 7.0 5.0-8.0 Urine Specific Clark 1.012 1.001-1.031 Urine Protein NEGATIVE NEGATIVE mg/dL Urine Glucose (UA) NEGATIVE NEGATIVE mg/dL Urine Ketones NEGATIVE NEGATIVE mg/dL Urine Occult Blood MODERATE H NEGATIVE Urine Nitrate 2+ H NEGATIVE Urine Bilirubin NEGATIVE NEGATIVE mg/dL Urine Urobilinogen 0.2 0.2-1.0 mg/dL Urine Leukocyte Esterase NEGATIVE NEGATIVE Arely/uL Urine RBC 0-1 0-1 /HPF Urine WBC 0-1 0-1 /HPF Urine Squamous Epithelial Cells RARE 0-2 /HPF Urine Bacteria RARE None Seen /HPF Troponin I High Sensitivity < 4 L 4-50 ng/L Lipase 32 16-77 U/L Current Medications Medications (Trade) Dose Ordered Sig/Jorge L Route PRN Reason Start Time Stop Time Status Last Admin Dose Admin Acetaminophen (TYLenol 325MG TAB) 650 mg Q4H PRN PO MILD PAIN (1-3) 01/21/25 16:00 02/20/25 15:59 Acetaminophen (TYLenol 325MG TAB) 650 mg Q6H PRN PO MILD PAIN (1-3) 01/21/25 16:00 01/21/25 15:56 DC Acetaminophen (TYLenol 325MG TAB) 650 mg Q6H PRN PO TEMPERATURE GREATER THAN 101.5 01/21/25 16:00 02/20/25 15:59 Al Hydroxide/Mg Hydroxide (MAALox PLUS 30ML) 30 ml Q6H PRN PO INDIGESTION 01/21/25 16:00 02/20/25 15:59 Ceftriaxone Sodium 2 gm/ Sodium Chloride 100 ml @ 200 mls/hr Q24H IV 5/27/25 16:00 01/21/25 15:56 DC Ceftriaxone Sodium (Rocephin 2gm Inj) 2 gm Q24H IVPB 01/21/25 16:00 01/22/25 08:54 DC 01/21/25 17:02 2 GM Dextrose (D50w) 50 ml AD PRN IV HYPOGLYCEMIA PROTOCOL 01/21/25 16:00 02/20/25 15:59 Dextrose/Sodium Chloride 1,000 ml @ 100 mls/hr Q10H IV 01/22/25 13:30 02/21/25 13:29 01/22/25 13:34 100 MLS/HR Diphenhydramine HCl (BENAdryl INJ) 25 mg Q6H PRN IV SEVERE ITCHING/RASH 01/21/25 16:00 02/20/25 15:59 Famotidine (Pepcid 20mg Vial) 20 mg BID IV 01/21/25 21:00 02/20/25 20:59 01/22/25 08:16 20 MG Famotidine (Pepcid 20mg Vial) 20 mg BID PRN IV NAUSEA/VOMITING 01/21/25 16:00 01/21/25 15:56 DC Glucagon (Glucagon 1mg Kit) 1 mg AD PRN IM HYPOGLYCEMIA PROTOCOL 01/21/25 16:00 02/20/25 15:59 Guaifenesin/ Dextromethorphan (RobiTUSSin DM 200/20MG 10ML) 10 ml Q4H PRN PO COUGH 01/21/25 16:00 02/20/25 15:59 Hydralazine HCl (APRESOLine 20MG INJ) 10 mg Q6H PRN IV For:SBP above 160;DBP above 90 01/21/25 16:00 02/20/25 15:59 Insulin Human Regular (humuLIN R 100 UNIT/ML 3ML) INSULIN SLIDING SCAL... ACHS SQ 01/21/25 16:30 02/20/25 16:29 Ketorolac Tromethamine (toRADol) 15 mg Q8H PRN IV MODERATE PAIN (4-6) 01/21/25 16:00 01/26/25 15:59 Lactulose (Constulose 20gm/ 30ml Udcup) 20 gm BID PRN PO CONSTIPATION 01/21/25 16:00 02/20/25 15:59 Magnesium Sulfate 50 ml @ 0 mls/hr PROTOCOL PRN IV other 01/21/25 16:00 02/20/25 15:59 Morphine Sulfate (morPHINE 2MG SYG) 1 mg Q4H PRN IVP SEVERE PAIN (7-10) 01/21/25 16:00 01/28/25 15:59 Nitroglycerin (Nitrostat) 0.4 mg PROTOCOL PRN SL CHEST PAIN 01/21/25 16:00 02/20/25 15:59 Ondansetron HCl (zoFRAN 4MG INJ) 4 mg Q6H PRN IV NAUSEA/VOMITING 01/21/25 16:00 02/20/25 15:59 Piperacillin Sod/ Tazobactam Sod (Zosyn 3.375gm+NS 50ml) 3.375 gm Q8H IV 01/22/25 09:00 02/01/25 08:59 01/22/25 17:45 3.375 GM Potassium Chloride 100 ml @ 100 mls/hr AD PRN IV POTASSIUM PROTOCOL 01/21/25 16:00 02/20/25 15:59 Potassium Chloride (K-Dur 10meq Sr Tab) 10 meq AD PRN PO POTASSIUM PROTOCOL 01/21/25 16:00 02/20/25 15:59 Potassium Chloride (KCl 10% Elixir 20meq/15ml) 10 meq AD PRN PO POTASSIUM PROTOCOL 01/21/25 16:00 02/20/25 15:59 Sodium Chloride 1,000 ml @ 100 mls/hr Q10H IV 01/21/25 16:00 01/22/25 13:04 DC 01/22/25 11:57 100 MLS/HR Zolpidem Tartrate (AmbIEN) 5 mg HS PRN PO INSOMNIA 01/21/25 16:00 02/20/25 15:59 DIAGNOSTICS / RADIOLOGY: [ ] ASSESSMENT: Suspect Acute cholecystitis POA Acute cholelithiasis POA Acute complicated cystitis POA Electrolyte imbalance hypokalemia K3.7 Leukocytosis POA Positive test History of gestational diabetes History of colon polyps PLAN: Start diet Empiric antibiotics Continue IV fluids P.r.n. medication for pain and nausea Repeat quantitative HCG tomorrow General surgery consulted, appreciate recommendations Disposition: Expecting discharge home tomorrow to follow up outpatient for elective cholecystectomy if she remains asymptomatic. Repeat quantitative hCG if continues up trending we will refer to her FATEMEH FLORENTINO MD January 22, 2025 18:24
[2025-01-23] VITALS: BP 92/50; PULSE 79; RESP 16; TEMP 98.1
[2025-01-23 04:00] VITALS: BP 114/64; PULSE 89; RESP 18; TEMP 97.9
[2025-01-23 05:11] LABS: HEMATOCRIT 35.6 % (36-48); MEAN CORPUSCULAR HEMOGLOBIN 28.8 pg (27.0-33.0); MEAN CORPUSCULAR HGB CONC 33.1 g/dL (32.0-36.0); MEAN CORPUSCULAR VOLUME 86.8 fL (79-99); RED BLOOD CELL COUNT(AUTO) 4.1 MIL/uL (4.00-5.50); RED CELL DISTRIBUTION WIDTH 14.4 % (11.0-15.5); WHITE BLOOD COUNT (AUTO) 7.4 K/uL (4.8-10.8)
[2025-01-23 05:34] LABS: ALBUMIN 3.5 g/dL (3.5-5.0); BILIRUBIN,TOTAL 1.1 mg/dL (0.2-1.0); CREATININE 0.7 mg/dL (0.5-1.0); POTASSIUM 4.2 mmol/L (3.5-5.1); TOTAL PROTEIN, SERUM 7.1 g/dL (6.0-8.3)
[2025-01-23 08:00] VITALS: BP 107/67; PULSE 74; RESP 16; TEMP 98.1
[2025-01-23] MEDS ORDERED: PREN-188 PO (10:06)
[2025-01-23] MEDS ORDERED: CEPH500B PO (10:06)
[2025-01-23 10:43] VITALS: O2SAT 98
--- NOTE | 2025-01-23 12:55 | NUR ---
Discharge PT sitting in bed w/ eyes open 0 s/s of distress noted a&ox4 able to make needs known, denies pain or discomfort. Discharge instructions given verbally and written, PT verbally acknowledged understanding w/ 0 questions or concerns. I.V. removed intact without complications. PT escorted to POV via WC by [employer]BER BU[employer]ER
--- NOTE | 2025-01-23 14:21 | DS ---
Discharge Summary Hospital Course Summary: 29 years old female with a past medical history of gestational diabetes, colon polyps, who came to emergency department with a complaint of of per quadrant abdominal pain radiating to her back to the right. Patient stated that this has been going on since last night that started afternoon and about 9:00 p.m. she took a Motrin but unfortunately did not help to relieve the pain. Patient repeated Motrin again about 11:00 p.m. but still discomfort state. Patient denies any urinary problems. Pain on arrival was 10/10. At this moment patient denies any shortness of breath, chest pain, nausea, vomiting or abdominal pain but she believes it is due to medication that she received in ER. Patient's test was positive with the patient stated that she is on her menstrual cycle at this moment. Patient is on six day today were normally her menstruation last 7 to 8 days. General surgery was consulted, recommended HIDA scan however the patient refused. By hospital day 2 her symptoms had resolved, she was kept for further observation and she remained asymptomatic and she was cleared to discharge home and follow up outpatient with general surgery to schedule an elective procedure if desired. Of note serial quantitative HCG were ordered and were uptrending consistent with an active likely very early in the first two weeks. She has been advised to follow up with her OBGYN. She was positive for Klebsiella UTI and will be discharged with keflex to treat UTI and vitamins. . Director Of Managed Care(s): General Surgery Procedure(s): Exam Type: CT ABDOMEN/PELVIS W/O CONTRAST Clinical Information: cholecystitis Comparison: None CT Dose Index (CTDI): 10.20 mGy Dose Length Product (DLP): 530.00 total mGy-cm PROTOCOL: Routine noncontrast helical scanning of the abdomen and pelvis was performed at 5mm collimation. Findings: No evidence of nephro or ureterolithiasis is found. No hydronephrosis or ureteral dilatation is seen. The lung bases are clear. The stomach is unremarkable. It shows no wall thickening. No gross ulceration is seen. It is not overly distended. There are no surrounding inflammatory changes. No wall lesions are identified to suggest cancer. The spleen is unremarkable. It is not enlarged. The pancreas shows normal anatomy. It is not fatty replaced. It shows no lesions. The pancreatic duct is not dilated. Cholelithiasis without hydropic gallbladder. No pericholecystic fluid or gallbladder wall thickening to suggest inflammatory change. The adrenal glands are unremarkable. There is no enlargement. No lesions are noted. The liver is unremarkable. It shows no focal masses. The appendix is unremarkable. It shows no evidence of inflammation. No appendicolith is seen. The small bowel is unremarkable. There is no evidence of dilatation to suggest obstruction. No evidence of adynamic ileus is seen. There is no small bowel wall thickening to suggest enteritis. The colon is unremarkable. The urinary bladder is unremarkable. There is no wall thickening to suggest tumor or inflammation. There are no intraluminal calculi. There are no diverticula. There is no evidence of chronic bladder outlet obstruction. There is no evidence of urinary bladder distention to suggest urinary retention. The other pelvic structures are unremarkable. The bony and vascular structures are unremarkable for the patient's age. IMPRESSION: Cholelithiasis without hydropic gallbladder. This study was performed using dose reduction techniques to include automated exposure control and/or adjustment of the mA and/or kV according to patient size. Exam Type: US OB <14 WEEKS Clinical Information: POSITIVE TEST, VAGINAL BLEEDING Comparison: None Findings: The uterus is normal in size and echogenicity. The endometrial lining is normal in thickness. No intrauterine or ectopic seen. The ovaries are normal in size and echogenicity. Vascular Doppler flow exam and spectral analysis of waveforms analysis is unremarkable bilaterally. There is preserved vascularity to both ovaries on Doppler evaluation. Specifically, there is no evidence of ovarian torsion. No free fluid is noted throughout the cul-de-sac. There are no adnexal abnormalities. No other significant abnormalities are seen. No fluid collections or masses or free fluid are identified in the pelvis. Impression: NORMAL EXAM. No evidence of uterine pathology. No evidence of adnexal abnormalities or ovarian torsion. No intrauterine or ectopic seen. Exam Type: US ABDOMINAL RUQ\E\LTD Clinical Information: RUQ abd pain r/o acute cholecystitis Comparison: None Findings: The liver shows normal echogenicity and size. No hepatic lesions are seen. Doppler evaluation shows patent portal and hepatic veins. The gallbladder shows cholelithiasis. No acute or chronic inflammation is noted. The gallbladder wall measures 3 mm No bile duct dilatation is noted. The common bile duct measures 4 mm. The right kidney measures 10.9 x 4.6 cm, and shows no hydronephrosis or calculi, masses or other abnormalities. The pancreas is suboptimally visualized. The aorta and inferior vena cava show no significant abnormalities. IMPRESSION: Cholelithiasis. Assessment/Plan: Suspect Acute cholecystitis, ruled out POA Cholelithiasis POA Biliary cholic, POA Acute complicated cystitis, klebsiella POA Electrolyte imbalance hypokalemia K3.7 Leukocytosis POA Early History of gestational diabetes History of colon polyps Discharge Instructions: Follow up with PCP in 3-7 days Follow up with OBGYN in 1-2 weeks regarding Follow up with General Surgery to schedule elective cholecystectomy if desired Home Medications: Active Scripts #79/Iron Asp Gly/FA#1 (Prenate Elite Tablet) 20 Mg Iron-1 Mg Tablet, 1 TAB PO DAILY for 30 Days, #30 TAB 0 Refills Prov:FATEMEH SHARPE MD 01/23/25 Cephalexin Monohydrate (Keflex) 500 Mg Cap, 1 CAP PO BID for 5 Days, #10 CAP 0 Refills Prov:FATEMEH SHARPE MD 01/23/25 New Medications: Cephalexin Monohydrate (Keflex) 500 Mg Cap 1 CAP PO BID for 5 Days, #10 CAP 0 Refills #79/Iron Asp Gly/FA#1 (Prenate Elite Tablet) 20 Mg Iron-1 Mg Tablet 1 TAB PO DAILY for 30 Days, #30 TAB 0 Refills Time spent arranging discharge: 31-60 minutes FATEMEH SHARPE MD January 23, 2025 14:21
== END 2025-01-23 12:55 | disposition home or self-care (01) | DRG 445 ==
LOC: EDH 09:03 → EDHIP 09:04 → 4CH 17:45
PROVIDERS: ADMIT Internal Medicine; ATTEND Internal Medicine
DX: K80.64 Calculus of gallbladder and bile duct with chronic cholecystitis without obstruction (principal); N30.00 Acute cystitis without hematuria; Z32.01 Encounter for pregnancy test, result positive; E87.6 Hypokalemia; B96.1 Klebsiella pneumoniae [K. pneumoniae] as the cause of diseases classified elsewhere; Z86.0100 Personal history of colon polyps, unspecified; Z86.32 Personal history of gestational diabetes
CPT/HCPCS: 36415; 74176; 76705; 76801; 80048; 80053; 80076; 81001; 81025; 82550; 82948; 83036; 83605; 83690; 83735; 83880; 84145; 84484; 84702; 85025; 85027; 87086; 87186; 93005; 99285; G0378; J0696; J2543; J3490; J7042; J7070

== ENCOUNTER 2025-04-22 00:10 | Inpatient (IN) | payer SELFPAY ==
[2025-04-22] VITALS (7 sets, daily range): BP systolic 96–108; BP diastolic 49–66; PULSE 58–77; RESP 16–18; TEMP 97.6–98.3; O2SAT 97–100
[~2025-04-22] VITALS: Ht 157.5 cm; Wt 73.7 kg
[~2025-04-22 00:10] MED LIST: CEPH500B PO; PREN-188 PO
--- NOTE | 2025-04-22 00:26 | ERN ---
ED Note History of Present Illness Stated Complaint: C/O RUQ PAIN RADIATING TO BACK WITH N X V, Chief Complaint: Abdominal Pain Time Seen by MD: 00:12 Time Seen by Midlevel: 00:12 Dictation: The patient is a 29-year-old female with a history of cholelithiasis who presents to the emergency department with complaints of right upper abdominal pain onset Monday associated with chills, nausea nonbloody vomiting. Patient reports that she was seen here in December and was admitted to the hospital for cholelithiasis but refused a HIDA scan due to . Patient reports she had a miscarriage in January. Reports she went to an urgent care in [place] but refused ultrasound and only had lab work done where she had leukocytosis so she presented to the ER today for further evaluation. Allergies: Coded Allergies: codeine (Unverified Allergy, Unknown, 01/21/25) Home Meds Discontinued Scripts #79/Iron Asp Gly/FA#1 (Prenate Elite Tablet) 20 Mg Iron-1 Mg Tablet, 1 TAB PO DAILY for 30 Days, #30 TAB 0 Refills Prov:FATEMEH SHARPE MD 01/23/25 Cephalexin Monohydrate (Keflex) 500 Mg Cap, 1 CAP PO BID for 5 Days, #10 CAP 0 Refills Prov:FATEMEH SHARPE MD 01/23/25 Past Medical History Past Medical History: No Pertinent History Additional Past Medical Hx: HX OF BLOODY STOOLS, COLON POLYPS Surgical History: None LMP: Apr 22, 2025 RN Note Reviewed/Agreed w/PFSH: Yes Review of System Dictation Constitutional: Negative for fever,chills, and weight loss Eyes: Negative for injury, pain,redness, and discharge ENT: Negative for injury,pain or swelling Cardiovascular: Negative for chest pain, palpitations, and edema Respiratory: Negative for shortness of breath, cough, and wheezing, Abdomen/GI: Negative for diarrhea, and constipation positive for abdominal pain, nausea, vomiting Back: Negative for injury and pain : Negative for injury, bleeding and discharge MS/Extremity: Negative for injury and deformity Skin: Negative for rash, and discoloration Neuro: Negative for headache, weakness, numbness, tingling, and seizure Psych: Negative for suicide ideation, homicidal ideation, and hallucinations Initial Vital Sign VS Vital Signs Date Time Temp Pulse Resp B/P (MAP) Pulse Ox O2 Delivery O2 Flow Rate FiO2 04/22/25 00:12 98.1 65 20 108/64 97 Room Air 04/22/25 00:26 0 21 Physical Exam Dictation Vital Signs reviewed General Appearance: Alert, oriented x 3, no acute distress, well developed, nourished. Head and Face: non-traumatic. Eyes: PERRL, pink conjunctivas, eyelid no trauma, anterior chamber with arcus senilis. Ears: Pinnas intact and no signs of trauma or erythema ear canals clear and no discharge TM no erythema Nose: No discharge, no bleeding. Oropharynx: Mouth normal, tongue pink. pharynx clear,no erythema, tonsils no exudates, no abscesses noted, mucous membrane moist Neck: Supple, non-tender, no thyromegaly, no masses, no JVD, no bruits Breast:Deferred Chest:No tenderness, no crepitus, no paradoxical movement, no retractions Lungs:Clear, well-ventilated, symmetric, no rales, no wheezing, no rhonchi, no stridor, good breath sounds bilaterally Heart: Regular rate, regular rhythm, no murmur, no gallops Vascular: no peripheral edema, Abdomen: Soft, positive bowel sounds, nondistended, no guarding, Right upper quadrant tenderness, no rebound, no masses no hepatomegaly, no splenomegaly, no Miller's sign, no hernias. Rectal: Deferred Genital: Deferred Neurological: Normal speech, motor function intact, sensory function intact Musculoskeletal: Neck nontender, full range of motion, back nontender, full range of motion, Extremities: nontender, full range of motion Skin: Color pink, dry, no turgor, no rash, no lacerations, no abrasions, no contusions. Lymphatic: Deferred Results (Laboratory/Radiology) Laboratory/Radiology Laboratory Tests Test 04/22/25 00:53 04/22/25 02:23 White Blood Count 13.8 K/uL (4.8-10.8) H Red Blood Count 4.24 MIL/uL (4.00-5.50) Hemoglobin 12.5 g/dL (12.0-16.0) Hematocrit 36.4 % (36-48) Mean Corpuscular Volume 85.8 fL (79-99) Mean Corpuscular Hemoglobin 29.5 pg (27.0-33.0) Mean Corpuscular Hemoglobin Concent 34.3 g/dL (32.0-36.0) Red Cell Distribution Width 13.3 % (11.0-15.5) Platelet Count 311 K/uL (130-400) Mean Platelet Volume 9.9 fL (7.5-10.5) Immature Granulocyte % (Auto) 0.3 % (0-1) Neutrophils (%) (Auto) 80.4 % (40.0-77.0) H Lymphocytes (%) (Auto) 10.7 % (21.0-51.0) L Monocytes (%) (Auto) 7.1 % (3.0-13.0) Eosinophils (%) (Auto) 1.1 % (0.0-8.0) Basophils (%) (Auto) 0.4 % (0.0-5.0) Neutrophils # (Auto) 11.1 K/uL (1.8-7.7) H Lymphocytes # (Auto) 1.5 K/uL (1.0-4.8) Monocytes # (Auto) 1.0 K/uL (0.1-1.0) Eosinophils # (Auto) 0.15 K/uL (0.00-0.70) Basophils # (Auto) 0.06 K/uL (0.00-0.20) Absolute Immature Granulocyte (auto 0.04 K/uL (0-1) Nucleated Red Blood Cells 0.0 % (0.0-0.19) Sodium Level 138 mmol/L (136-145) Potassium Level 3.5 mmol/L (3.5-5.1) Chloride Level 101 mmol/L (101-111) Carbon Dioxide Level 30 mmol/L (21-32) Blood Urea Nitrogen 9 mg/dL (7-18) Creatinine 0.6 mg/dL (0.5-1.0) Glomerular Filtration Rate Calc 126 mL/min (>90) Random Glucose 91 mg/dL (70-105) Total Calcium 9.2 mg/dL (8.5-10.1) Total Bilirubin 1.5 mg/dL (0.2-1.0) H Direct Bilirubin 0.3 mg/dL (0.0-0.3) Aspartate Amino Transf (AST/SGOT) 16 U/L (10-37) Alanine Aminotransferase (ALT/SGPT) 40 U/L (12-78) Alkaline Phosphatase 142 U/L (50-136) H Total Protein 8.4 g/dL (6.0-8.3) H Albumin 4.4 g/dL (3.5-5.0) Lipase 33 U/L (16-77) Urine Color LIGHT-YELLOW (YELLOW) Urine Appearance CLEAR (CLEAR) Urine pH 6.5 (5.0-8.0) Urine Specific Flom 1.011 (1.001-1.031) Urine Protein NEGATIVE mg/dL (NEGATIVE) Urine Glucose (UA) NEGATIVE mg/dL (NEGATIVE) Urine Ketones 40 mg/dL (NEGATIVE) H Urine Occult Blood SMALL (NEGATIVE) H Urine Nitrate NEGATIVE (NEGATIVE) Urine Bilirubin NEGATIVE mg/dL (NEGATIVE) Urine Urobilinogen 0.2 mg/dL (0.2-1.0) Urine Leukocyte Esterase NEGATIVE Arely/uL Urine RBC 2-5 /HPF (0-1) H Urine WBC 2-5 /HPF (0-1) H Urine Squamous Epithelial Cells RARE /HPF (0-2) Urine Bacteria FEW /HPF (None Seen) Urine HCG, Qualitative NEGATIVE (NEGATIVE) REASON: abd pain ORDERING PHYSICIAN: REBECCA SMITH PROCEDURE: [id number] - US ABDOMINAL RUQ\LTD ADDENDUM REPORT ADDENDUM: Results were shared by telephone at 3:02am on 04-22-25 and acknowledged by CABIN SUPERVISOR EARNESTINE MANRIQUE /[facility] EXAM: US Abdomen, Right Upper Quadrant. CLINICAL HISTORY: Abdominal pain. TECHNIQUE: Right upper quadrant sonography performed with image documentation. COMPARISON: Ultrasound of the right upper quadrant dated 01/21/2025. FINDINGS: LIVER: The liver is marginally increased in size, measuring 18 cm. Increased echogenicity. No mass. GALLBLADDER: The gallbladder is distended with sludge within. There is a nonmobile calculus at the gallbladder neck. Wall-thickness measures 3 mm, stable. Unable to determine Miller???s sign due to the given pain medication. COMMON BILE DUCT: No dilation. 4 mm. PANCREAS: The visualized pancreas appears within normal limits. The distal pancreas is obscured by bowel gas. RIGHT KIDNEY: Unremarkable. Normal renal contours. No renal mass or calculus. No hydronephrosis. Measures 11.4 x 3.9 x 4.2 cm. IMPRESSION: Cholelithiasis with questionable acute cholecystitis. Mild interval worsening in this finding compared to the previous ultrasound. Recommend a HIDA scan for further evaluation. Borderline hepatomegaly with fatty changes. /[facility] Labs Reviewed?: Yes ED Course ED Course Orders Procedure Category Date Status Time Cbc With Differential LAB 04/22/25 Complete 00:22 ,Urine Test LAB 04/22/25 Complete 00:22 Urinalysis Profile LAB 04/22/25 Complete 00:22 0.9%Nacl 1000ml (Ns PHA 04/22/25 Complete 1000ml) 00:30 Morphine 4mg Syg PHA 04/22/25 Complete (Morphine 4mg Syg) 00:30 Ondansetron 4mg Inj PHA 04/22/25 Complete (Zofran 4mg Inj) 00:30 Lipase LAB 04/22/25 Complete 00:22 Basic Metabolic Panel LAB 04/22/25 Complete 00:22 Hepatic Function Panel LAB 04/22/25 Complete 00:22 Us Abdominal Ruq\Ltd US 04/22/25 Resulted 00:22 Current Medications Medications (Trade) Dose Ordered Sig/Jorge L Route PRN Reason Start Time Stop Time Status Last Admin Dose Admin Morphine Sulfate (morPHINE 4MG SYG) 4 mg ONCE ONCE IVP 04/22/25 00:30 04/22/25 00:31 DC 04/22/25 00:52 Ondansetron HCl (zoFRAN 4MG INJ) 4 mg ONCE ONCE IVP 04/22/25 00:30 04/22/25 00:31 DC 04/22/25 00:52 Sodium Chloride 1,000 ml @ 0 mls/hr ONCE ONCE IV 04/22/25 00:30 04/22/25 00:31 DC 04/22/25 00:52 Vital Signs Date Time Temp Pulse Resp B/P (MAP) Pulse Ox O2 Delivery O2 Flow Rate FiO2 04/22/25 00:26 98.1 72 14 116/81 100 Room Air* 0 21 04/22/25 00:12 98.1 65 20 108/64 97 Room Air Medical Decision Making MDM MDM: The patient is a 29-year-old female with a history of cholelithiasis who presents to the emergency department with complaints of right upper abdominal pain onset Monday associated with chills, nausea nonbloody vomiting. Patient reports that she was seen here in December and was admitted to the hospital for cholelithiasis but refused a HIDA scan due to . Patient reports she had a miscarriage in January. Reports she went to an urgent care in [place] but refused ultrasound and only had lab work done where she had leukocytosis so she presented to the ER today for further evaluation. CBC showed mild leukocytosis, no anemia, chemistry showed no electrolyte imbalance, urinalysis unremarkable. Ultrasound revealed cholelithiasis with questionable cholecystitis. Patient will be admitted for further evaluation and treatment. Differential diagnosis: Cholelithiasis, cholecystitis, pancreatitis, electrolyte imbalance, gastroenteritis Comorbidities: Cholelithiasis Tests considered and not ordered secondary to shared decision making include: none Previous outside records reviewed: none Risk of complication and/or morbidity or mortality of patient management: The patient meets criteria for admission. Need for emergency major/minor surgery: No There are no social concerns with this patient. I independently interpreted the tests I ordered (labs, urinalysis, etc.). I discussed the case with the hospitalist for admission. Elvin GUTHRIE who accepts admission I discussed the case with the following specialists: none. Historian: pateint. I independently interpreted imaging studies and EKGs that I ordered (US, CT, XR, EKG, etc.). External chart review: none. Medical management and examination interpretation discussions were had by me with other qualified healthcare professionals as indicated for the patient's care. DX & DISP Disposition: Inpatient Decision to Admit Date: Apr 22, 2025 Decision to Admit Time: 03:36 Departure Impression: Primary Impression: Cholelithiasis Additional Impression: Leukocytosis Condition: Stable Referrals: RICCI ALONSO CABIN SUPERVISOR (PCP) I have reviewed the case, and I agree with, Diagnosis and Plan REBECCA SMITH Apr 22, 2025 00:26
[2025-04-22] MEDS: 0.9%NACL 1000ML 1,000 ML IV ONE (00:52)
[2025-04-22 01:01] LABS: IMMATURE GRANULOCYTE ABSOLUTE 0.04 K/uL (0-1); NUCLEATED RED BLOOD CELLS 0.0 % (0.0-0.19); PLATELET COUNT (AUTO) 311 K/uL (130-400); RED BLOOD CELL COUNT(AUTO) 4.24 MIL/uL (4.00-5.50); RED CELL DISTRIBUTION WIDTH 13.3 % (11.0-15.5); WHITE BLOOD COUNT (AUTO) 13.8 K/uL (4.8-10.8)
[2025-04-22 01:16] LABS: CREATININE 0.6 mg/dL (0.5-1.0); GLOMERULAR FILTR. RATE CALC 126.0 mL/min (>90); GLUCOSE,RANDOM 91.0 mg/dL (70-105); SODIUM SERUM 138.0 mmol/L (136-145); UREA NITROGEN, BLOOD 9.0 mg/dL (7-18)
[2025-04-22 01:20] LABS: ASPARTATE AMINOTRANSFERASE 16.0 U/L (10-37); TOTAL PROTEIN, SERUM 8.4 g/dL (6.0-8.3)
--- NOTE | 2025-04-22 02:00 | HMCIMG ---
EXAM: US Abdomen, Right Upper Quadrant. CLINICAL HISTORY: Abdominal pain. TECHNIQUE: Right upper quadrant sonography performed with image documentation. COMPARISON: Ultrasound of the right upper quadrant dated 01/21/2025. FINDINGS: LIVER: The liver is marginally increased in size, measuring 18 cm. Increased echogenicity. No mass. GALLBLADDER: The gallbladder is distended with sludge within. There is a nonmobile calculus at the gallbladder neck. Wall-thickness measures 3 mm, stable. Unable to determine Miller???s sign due to the given pain medication. COMMON BILE DUCT: No dilation. 4 mm. PANCREAS: The visualized pancreas appears within normal limits. The distal pancreas is obscured by bowel gas. RIGHT KIDNEY: Unremarkable. Normal renal contours. No renal mass or calculus. No hydronephrosis. Measures 11.4 x 3.9 x 4.2 cm. IMPRESSION: Cholelithiasis with questionable acute cholecystitis. Mild interval worsening in this finding compared to the previous ultrasound. Recommend a HIDA scan for further evaluation. Borderline hepatomegaly with fatty changes. /[place]
[2025-04-22 02:42] LABS: APPEARANCE,URINE CLEAR (CLEAR); GLUCOSE, URINE (UA) NEGATIVE (NEGATIVE); LEUKOCYTE ESTERASE ,URINE NEGATIVE Leu/uL (NEGATIVE); NITRATE,URINE NEGATIVE (NEGATIVE); OCCULT BLOOD,URINE SMALL (NEGATIVE)
[2025-04-22 02:44] LABS: ADD UA MICROSCOPIC YES
[2025-04-22 02:46] LABS: SQUAMOUS EPITHELIAL CELL,UR RARE /HPF (0-2)
[2025-04-22 02:53] LABS: HCG,QUALITATIVE URINE NEGATIVE (NEGATIVE)
--- NOTE | 2025-04-22 03:48 | HP ---
History of Present Illness Reason for Visit: abdominal pain History of Present Illness Ms. Gomez 29-year-old female that was seen and examined today on 04/22/2025. Patient is a good historian of personal health Patient reports that she came to the emergency department with a chief complaint of abdominal pain. Onset was December 2024. Patient states she was diagnosed with gallstones at that time but she was not a candidate for surgery due to being . Patient has since then has miscarried. Location is right upper quadrant. Duration is on and off. Character is described as " tugging/pulling". Pain radiates to right shoulder. There was no alleviating factors. Symptoms are aggravated with eating. Patient denies any associated nausea or vomiting at this time. Today in the emergency department WBCs 13.8, left shift neutrophils 80.4%, abdominal ultrasound shows cholelithiasis with possible cholecystitis. Emergency room physician recommended that patient be admitted for surgical evaluation. Past Medical History Patient History: Carcinomas GRANDMOTHER Cardiovascular disease FATHER Diabetes mellitus MOTHER ADDITIONAL PAST MEDICAL HISTORY: [Seasonal asthma] SOCIAL HISTORY: [Negative for smoking, alcohol use, drug use. Patient lives with the has beenIker. Patient is typically independent of all her ADLs. Patient denies difficulty paying her bills.] SURGICAL HISTORY: [Denies] Review of Systems General: No Fever, No Chills, No Night Sweats, No Fatigue, No Malaise, No Appetite, No Other HEENT: No Head Aches, No Visual Changes, No Eye Pain, No Ear Pain, No Dysphasia, No Sinus Congestion, No Post Nasal Drip, No Sore Throat, No Other Pulmonary: No Dyspnea, No Cough, No Pleuritic Chest Pain, No Other Cardiovascular: No: Chest Pain, Palpitations, Orthopnea, Paroxysmal Noc. Dyspnea, Edema, Lt Headedness, Other Gastrointestinal: Abdominal Pain; No: Nausea, Vomiting, Diarrhea, Constipation, Melena, Hematochezia, Other Genitourinary: No Dysuria, No Frequency, No Incontinence, No Hematuria, No Retention, No Other Musculoskeletal: No: other, neck pain, shoulder pain, arm pain, back pain, hand pain, leg pain, foot pain Skin: No Urticaria, No Rash, No Other Neurological: No: Weakness, Numbness, Incoordination, Change in speech, Confusion, Seizures, Other Allergies: Coded Allergies: codeine (Unverified Allergy, Unknown, 01/21/25) Discontinued Medications Cephalexin Monohydrate (Keflex), 1 CAP PO BID #79/Iron Asp Gly/FA#1 (Prenate Elite Tablet), 1 TAB PO DAILY Exam Vital Signs Vital Signs Date Time Temp Pulse Resp B/P (MAP) Pulse Ox O2 Delivery O2 Flow Rate FiO2 04/22/25 00:26 98.1 72 14 116/81 100 Room Air* 0 21 General Appearance: Alert, Oriented X3, Cooperative, No acute distress HEENT: Atraumatic, EOMI Respiratory: Clear to auscultation, Normal air movement, NL respiratory effort Cardiovascular: Regular rate, Regular rhythm, Normal S1, Normal S2 Abdominal: Normal bowel sounds, Soft, No tenderness Extremities: No edema Skin: No significant lesion Neuro: Normal speech, Strength at 5/5 X4 ext, Sensation intact, Cranial nerves 3-12 NL Psych/Mental Status: Mental status NL, Mood NL, Thoughts/Content NL Assessment/Plan ASSESSMENT: [ Cholelithiasis, POA Leukocytosis, POA Suspected cholecystitis PLAN: [ Admit patient to medical floor as inpatient status. Patient will be followed by General surgery Service. Check HIDA scan in a.m., follow up with the results. Keep patient NPO. IV fluid maintenance therapy lactated Ringer's at 75 mL/HR. Check preprocedure labs, CBC, BMP, magnesium, phosphorus, PTT, UA, type and screen, EKG, CXR Patient states she has been able to tolerate morphine doses in the past, her allergies only nausea to codeine. Most recently received morphine at an em ergency department in [facility]. Check blood culture, follow up with the results Check procalcitonin, follow up with the results Check lactic acid, follow up with the results Empiric antibiotic therapy with Zosyn GI prophylaxis, famotidine DVT prophylaxis, Maximus's and SCDs ADVANCED CARE PLANNING 1. Which of the following were discussed? Hospice Care - Yes Therapeutic options - yes Advance Directives - Yes - patient states he does not have any advance directives in place at this time, however her Iker can make decisions for her if she becomes unable. Other discussions - patient wishes to remain a full code at this time 2. Discussed with who? Patient 3. Voluntary nature of this service was explained to the patient? Yes 4. Amount of time spent - ___16 minutes____ 5. Reviewed by Physician? (if this service was performed by NPP) Yes This document was generated in part using voice recognition software, occasional wrong word or sound alike substitutions may have occurred due to the inherent limitations of voice recognition software. Read the chart carefully and recognize using context, where the substitutions have occurred. Although every effort was made to edit the content, postdoctoral fellow and typing errors may occur ATTESTATION BY PHYSICIAN I have seen and examined the patient. I reviewed the documentation, medical decision making, and treatment plan as noted by the mid-level provider above. I agree with the findings and plan of care. ANSELMO MURCIA [facility] Apr 22, 2025 03:48
[2025-04-22] MEDS: ZOSYN 3.375GM +NS 50ML IV SCH (03:58)
[2025-04-22] MEDS: LACTATED RINGERS 1000ML 1,000 ML IV SCH (03:58)
[2025-04-22 04:00] LABS: INR 1.02 (0.85-1.15)
[2025-04-22] MEDS: FAMOTIDINE 20MG VIAL IV SCH (08:10)
--- NOTE | 2025-04-22 11:30 | CONS ---
CONSULT NOTE: Consulting physician:Dr Alas Consulting service: General surgery Reason for consultation: Cholelithiasis History of present illness: This is a 29-year-old female with a known history of cholelithiasis who has been consulted to surgery after presenting to the hospital with the abdominal pain right upper quadrant. Patient initially diagnosed in December but has been who was not surgical candidate with the time. Patient reporting miscarriage that she has been doing well but began with discomfort very familiar to previous episode and presented to the hospital for further evaluation. Imaging concerning for cholelithiasis with possible cholecystitis. Patient is still with the epigastric and upper quadrant pain radiating to her back. Patient currently NPO. Primary team has ordered HIDA scan currently pending at this time. WBCs elevated. LFTs elevated with a bilirubin of 1.5 Medical history: Known cholelithiasis Surgical history: Review of systems: General: No Fever, No Chills, No Night Sweats, No Fatigue, No Malaise, No Appetite, No Other HEENT: No Head Aches, No Visual Changes, No Eye Pain, No Ear Pain, No Dysphasia, No Sinus Congestion, No Post Nasal Drip, No Sore Throat, No Other Pulmonary: No Dyspnea, No Cough, No Pleuritic Chest Pain, No Other Cardiovascular: No: Chest Pain, Palpitations, Orthopnea, Paroxysmal No Dyspnea, Edema, Lt Headedness, Other Gastrointestinal: No: Nausea, Vomiting, Diarrhea, Constipation, Melena, Hematochezia, Other Genitourinary: No Dysuria, No Frequency, No Incontinence, No Hematuria, No Retention, No Other Musculoskeletal: No: other, neck pain, shoulder pain, arm pain, back pain, hand pain, leg pain, foot pain Skin: No Urticaria, No Rash, No Other Neurological: No: Weakness, Numbness, Incoordination, Change in speech, Confusion, Seizures, Other Physical exam: General: Awake alert and oriented Heart: Regular rate and rhythm} Lungs: [Clear to auscultation no distress Abdomen: [ Right upper quadrant discomfort radiating to the back and flank Assessment: This is a 29-year-old female with possible cholecystitis Plan: At this point in time we will await HIDA scan Patient to remain NPO Patient to continue with the IV fluids and IV antibiotics Repeat CBC and CMP Nursing to report any further acute events Dr. Rodriguez to be updated in patient's status SARAH SUE Jr. Apr 22, 2025 11:30
--- NOTE | 2025-04-22 14:21 | NUR ---
DCP:HOME Pt currently lives with sps Iker Gomez [phone] and dgt. pt does not have any DME, home health, or provider services. Pt states that she is able to complete ADLs independently. PCP is Stacy Earl and uses [facility] for any RX needs. At NE pt will want to go home and family can assist with transportation. Addendum: 04/22/25 at 1423 by CARLOS VALENCIA SS Amended: Links added.
--- NOTE | 2025-04-22 16:08 | HMCIMG ---
Examination Hepatobiliary study History abdominal pain, cholelithiasis (Hx) / abdominal pain, cholelithiasis, Static Images (DICOM Hx) (DICOM Hx) Technique Tc-99m mebrofenin were administered intravenously followed by acquisition of planar images of the abdomen. Findings Following administration of radiotracer, there is prompt appearance of normal hepatic contours, followed by appearance of activity in unremarkable appearing bile ducts. There is nonvisualization of the gallbladder suggesting acute cholecystitis. IMPRESSION: 1. Nonvisualization of the gallbladder suggesting acute cholecystitis. /[place]
--- NOTE | 2025-04-22 23:17 | NUR ---
RECEIVED REPORT FROM ED NURSE, AWAITING PATIENT ARRIVAL TO UNIT.
[2025-04-23] VITALS (7 sets, daily range): BP systolic 103–119; BP diastolic 52–67; PULSE 52–86; RESP 16–20; TEMP 97.6–98.4; O2SAT 95–100
[2025-04-23 06:11] LABS: CREATININE 0.7 mg/dL (0.5-1.0); GLOMERULAR FILTR. RATE CALC 121.0 mL/min (>90); GLUCOSE,RANDOM 80.0 mg/dL (70-105); PHOSPHORUS 3.5 mg/dL (2.5-4.9); SODIUM SERUM 137.0 mmol/L (136-145); UREA NITROGEN, BLOOD 9.0 mg/dL (7-18)
[2025-04-23 06:12] LABS: IMMATURE GRANULOCYTE ABSOLUTE 0.02 K/uL (0-1); NUCLEATED RED BLOOD CELLS 0.0 % (0.0-0.19); PLATELET COUNT (AUTO) 282 K/uL (130-400); RED BLOOD CELL COUNT(AUTO) 4.34 MIL/uL (4.00-5.50); RED CELL DISTRIBUTION WIDTH 13.1 % (11.0-15.5); WHITE BLOOD COUNT (AUTO) 10.8 K/uL (4.8-10.8)
--- NOTE | 2025-04-23 12:02 | PN ---
[facility] PROGRESS NOTE Date of Service: Apr 23, 2025 Time of Service: 11:58 SUBJECTIVE: [ ] Patient reports that she came to the emergency department with a chief complaint of abdominal pain. Onset was December 2024. Patient states she was diagnosed with gallstones at that time but she was not a candidate for surgery due to being . Patient has since then has miscarried. Location is right upper quadrant. Duration is on and off. Character is described as " tugging/pulling". Pain radiates to right shoulder. There was no alleviating factors. Symptoms are aggravated with eating. Patient denies any associated nausea or vomiting at this time. ER workup consistent WBCs 13.8, left shift neutrophils 80.4%, abdominal ultrasound shows cholelithiasis with possible cholecystitis. 04/23/2025 patient was seen earlier patient waiting for surgery today versus tomorrow. She remains NPO continue with pain management. REVIEW OF SYSTEMS CONSTITUTIONAL: Denies fevers, chills, or night sweats. No unintentional weight loss reported. NEUROLOGICAL: Denies headache, amaurosis fugax, motor weakness, sensory deficit, vertigo/spinning sensation, gait abnormalities, or tremors. ENT: No hearing loss, otalgia, otorrhea, rhinitis, rhinorrhea, hoarseness, or sore throat. CARDIOVASCULAR: Denies any exertional angina, dyspnea on exertion, orthopnea, paroxysmal nocturnal dyspnea, palpitations, life-threatening arrhythmias, claudication. PULMONARY: Denies any shortness of breath, cough, phlegm/sputum, hemoptysis, pl euritic chest pain. SLEEP: Denies morning headaches, daytime somnolence or napping. Denies difficulty falling asleep, staying asleep, waking from sleep. Denies knowledge of snoring. GASTROINTESTINAL: Denies any type of dysphagia to either liquids or solids. Denies nausea, vomiting, pyrosis, early satiety, abdominal pain, diarrhea, constipation, or changes in stool consistency or caliber. Denies coffee-ground emesis, hematemesis, hematochezia, or melanotic stools. GENITOURINARY: Denies frequency, urgency, nocturia, hematuria or incontinence (Storage/Irritative symptoms.) Low urinary stream, straining to void, urinary intermittency or hesitancy, splitting of the voiding stream, terminal dribbling. ENDOCRINOLOGIC: Denies polyuria, polydipsia, polyphagia or heat/cold intolera nces. HEMATOLOGIC: Denies thrombophilia/previous clots, or coagulopathy/bleeding disorders. ONCOLOGIC: Denies personal history of malignancy. DERMATOLOGIC: Denies rashes or pruritus. PSYCHIATRIC: Denies any suicidal or homicidal ideation. Denies hallucinations. PHYSICAL EXAM GENERAL APPEARANCE: The patient is awake, alert, and oriented, in no acute cardiopulmonary distress. NEUROLOGICAL: Cranial nerves II-XII grossly intact. Motor is 5/5 in bilateral upper and lower extremities proximal to distal. No sensory deficits. HEENT: Face is symmetric. Pupils are equal and reactive. Extraocular movements are intact. NECK: Supple. No JVD. No thyromegaly. No submental, submandibular, pre- /postauricular, occipital or supraclavicular lymphadenopathy. CHEST: Normal chest expansion. No Telemetry. LUNGS: Absence of any rales, rhonchi or any wheezing. CARDIOVASCULAR: Regular. S1 and S2 normal. No appreciable rubs, murmurs or gallops. ABDOMEN: Soft, nontender, and nondistended. There is no rebound, voluntary guarding, or rigidity. : Deferred. No Dorman. EXTREMITIES: Non-edematous and not cyanotic. No clubbing. Good capillary refill. SKIN: No skin breakdown. Vital Signs (last 8hr) Date Time Temp Pulse Resp B/P (MAP) Pulse Ox O2 Delivery O2 Flow Rate FiO2 04/23/25 08:00 98.1 52 16 108/58 95 Room Air 04/23/25 04:00 97.9 71 17 103/64 96 Room Air 21 LABS: Laboratory: Test 04/23/25 05:48 04/22/25 07:45 04/22/25 02:23 04/22/25 00:53 Range/Units White Blood Count 10.8 4.8-10.8 K/uL Red Blood Count 4.34 4.00-5.50 MIL/uL Hemoglobin 12.6 12.0-16.0 g/dL Hematocrit 37.8 36-48 % Mean Corpuscular Volume 87.1 79-99 fL Mean Corpuscular Hemoglobin 29.0 27.0-33.0 pg Mean Corpuscular Hemoglobin Concent 33.3 32.0-36.0 g/dL Red Cell Distribution Width 13.1 11.0-15.5 % Platelet Count 282 130-400 K/uL Mean Platelet Volume 9.7 7.5-10.5 fL Immature Granulocyte % (Auto) 0.2 0-1 % Neutrophils (%) (Auto) 74.5 40.0-77.0 % Lymphocytes (%) (Auto) 14.0 L 21.0-51.0 % Monocytes (%) (Auto) 9.5 3.0-13.0 % Eosinophils (%) (Auto) 1.3 0.0-8.0 % Basophils (%) (Auto) 0.5 0.0-5.0 % Neutrophils # (Auto) 8.1 H 1.8-7.7 K/uL Lymphocytes # (Auto) 1.5 1.0-4.8 K/uL Monocytes # (Auto) 1.0 0.1-1.0 K/uL Eosinophils # (Auto) 0.14 0.00-0.70 K/uL Basophils # (Auto) 0.05 0.00-0.20 K/uL Absolute Immature Granulocyte (auto 0.02 0-1 K/uL Nucleated Red Blood Cells 0.0 0.0-0.19 % Sodium Level 137 136-145 mmol/L Potassium Level 3.6 3.5-5.1 mmol/L Chloride Level 101 101-111 mmol/L Carbon Dioxide Level 24 21-32 mmol/L Blood Urea Nitrogen 9 7-18 mg/dL Creatinine 0.7 0.5-1.0 mg/dL Glomerular Filtration Rate Calc 121 >90 mL/min Random Glucose 80 70-105 mg/dL Total Calcium 9.0 8.5-10.1 mg/dL Phosphorus Level 3.5 2.5-4.9 mg/dL Magnesium Level 2.00 1.80-2.40 mg/dL Lactic Acid Level 0.8 0.8-2.5 mmol/L Urine Color LIGHT-YELLOW YELLOW Urine Appearance CLEAR CLEAR Urine pH 6.5 5.0-8.0 Urine Specific [place] 1.011 1.001-1.031 Urine Protein NEGATIVE NEGATIVE mg/dL Urine Glucose (UA) NEGATIVE NEGATIVE mg/dL Urine Ketones 40 H NEGATIVE mg/dL Urine Occult Blood SMALL H NEGATIVE Urine Nitrate NEGATIVE NEGATIVE Urine Bilirubin NEGATIVE NEGATIVE mg/dL Urine Urobilinogen 0.2 0.2-1.0 mg/dL Urine Leukocyte Esterase NEGATIVE NEGATIVE Arely/uL Urine RBC 2-5 H 0-1 /HPF Urine WBC 2-5 H 0-1 /HPF Urine Squamous Epithelial Cells RARE 0-2 /HPF Urine Bacteria FEW None Seen /HPF Urine HCG, Qualitative NEGATIVE NEGATIVE Prothrombin Time 10.8 9.6-11.6 SEC Prothromb Time International Ratio 1.02 0.85-1.15 Activated Partial Thromboplast Time 29.8 26.3-35.5 SEC Total Bilirubin 1.5 H 0.2-1.0 mg/dL Direct Bilirubin 0.3 0.0-0.3 mg/dL Aspartate Amino Transf (AST/SGOT) 16 10-37 U/L Alanine Aminotransferase (ALT/SGPT) 40 12-78 U/L Alkaline Phosphatase 142 H 50-136 U/L Total Protein 8.4 H 6.0-8.3 g/dL Albumin 4.4 3.5-5.0 g/dL Lipase 33 16-77 U/L Procalcitonin < 0.05 L 0.05-0.5 ng/mL Current Medications Medications (Trade) Dose Ordered Sig/Jorge L Route PRN Reason Start Time Stop Time Status Last Admin Dose Admin Acetaminophen (TYLenol 325MG TAB) 650 mg Q6H PRN PO TEMPERATURE GREATER THAN 101.5 04/22/25 04:00 05/22/25 03:59 Famotidine (Pepcid 20mg Vial) 20 mg DAILY IV 04/22/25 09:00 05/22/25 08:59 04/23/25 08:30 20 MG Hydralazine HCl (APRESOLine 20MG INJ) 10 mg Q6H PRN IV For:SBP above 160;DBP above 90 04/22/25 04:00 05/22/25 03:59 Lactated Ringer's 1,000 ml @ 75 mls/hr [id number] IV 04/22/25 04:00 05/22/25 03:59 04/23/25 05:49 75 MLS/HR Morphine Sulfate (morPHINE 4MG SYG) 4 mg Q4H PRN IVP SEVERE PAIN (7-10) 04/22/25 04:00 04/29/25 03:59 04/23/25 08:31 4 MG Ondansetron HCl (zoFRAN 4MG INJ) 4 mg Q6H PRN IV NAUSEA/VOMITING 04/22/25 04:00 05/22/25 03:59 Piperacillin Sod/ Tazobactam Sod (Zosyn 3.375gm+NS 50ml) 3.375 gm Q8H IV 04/22/25 04:00 05/02/25 03:59 04/23/25 04:40 3.375 GM DIAGNOSTICS / RADIOLOGY: [ ] ASSESSMENT: [ ] Acute Cholelithiasis, POA Leukocytosis, POA Suspected cholecystitis PLAN: [ ] Admit; medical floor neuropsychology medical consultant General surgery Service. Diet; NPO IVF: LR at 75 ml/hr imaging: HIDA consistent with acute cholecystitis Antibiotics Zosyn IV 3.375 g every 8 hours Microbiology blood culture so far negative Procedure: lap melina Encouraged patient early ambulation and deep breathing exercise postprocedure. Ongoing surveillance we will replace electrolytes as per protocol to keep pot assium above 4.0 magnesium above 2.0 Labs CBC CMP magnesium. GI prophylaxis, famotidine DVT prophylaxis, Maximus's and SCDs Further orders as per response to treatment All questions addressed ATTESTATION BY PHYSICIAN I have seen and examined the patient. I reviewed the documentation, medical decision making, and treatment plan as noted by the mid-level provider above. I agree with the findings and plan of care. KATHY MALDONADO MD, ELIZABETH NP Apr 23, 2025 12:02
--- NOTE | 2025-04-23 17:20 | PN ---
This is a 29-year-old female with concerns of acute cholecystitis Interval history: This is a 29-year-old female resting in her room HIDA scan consistent with cholecystitis Patient remains NPO Abdominal pain improving Labs and vitals unremarkable Physical exam General: Awake alert and oriented Heart: Regular rate and rhythm} Lungs: Clear to auscultation no distress Abdomen: [Soft, nontender, nondistended Assessment : This is a 29-year-old female with the acute cholecystitis Plan: This point in time patient will be scheduled for laparoscopic cholecystectomy tomorrow to be performed by Dr. Rodriguez Patient to be made NPO at midnight Surgical team to follow patient closely Consent for surgery we will need to be obtained Nursing report any further acute events Vitals/Labs Vital Signs Date Time Temp Pulse Resp B/P (MAP) Pulse Ox O2 Delivery O2 Flow Rate FiO2 04/23/25 16:00 98.2 83 17 107/61 97 Room Air 04/23/25 08:31 0 21 Laboratory Tests 04/23/25 05:48 Medications Current Medications Sodium Chloride 1,000 ml @ 0 mls/hr ONCE ONCE IV Last administered on 04/22/25at 00:52; Start 04/22/25 at 00:30; Stop 04/22/25 at 00:31; Status DC Morphine Sulfate 4 mg ONCE ONCE IVP Last administered on 04/22/25at 00:52; Start 04/22/25 at 00:30; Stop 04/22/25 at 00:31; Status DC Ondansetron HCl 4 mg ONCE ONCE IVP Last administered on 04/22/25at 00:52; Start 04/22/25 at 00:30; Stop 04/22/25 at 00:31; Status DC Acetaminophen 650 mg Q6H PRN PO; Start 04/22/25 at 04:00; Stop 05/22/25 at 03:59 Famotidine 20 mg DAILY IV Last administered on 04/23/25at 08:30; Start 04/22/25 at 09:00; Stop 05/22/25 at 08:59 Ondansetron HCl 4 mg Q6H PRN IV; Start 04/22/25 at 04:00; Stop 05/22/25 at 03:59 Lactated Ringer's 1,000 ml @ 75 mls/hr [id number] IV Last administered on 04/23/25at 05:49; Start 04/22/25 at 04:00; Stop 05/22/25 at 03:59 Hydralazine HCl 10 mg Q6H PRN IV; Start 04/22/25 at 04:00; Stop 05/22/25 at 03:59 Piperacillin Sod/ Tazobactam Sod 3.375 gm Q8H IV Last administered on 04/23/25at 12:56; Start 04/22/25 at 04:00; Stop 05/02/25 at 03:59 Morphine Sulfate 4 mg Q4H PRN IVP Last administered on 04/23/25at 08:31; Start 04/22/25 at 04:00; Stop 04/29/25 at 03:59 SARAH SUE Jr. Apr 23, 2025 17:20
[2025-04-24] VITALS (27 sets, daily range): BP systolic 105–155; BP diastolic 58–92; PULSE 62–87; RESP 12–20; TEMP 97.1–98.6; O2SAT 97–98
--- NOTE | 2025-04-24 10:57 | NUR ---
PATIENT OFF UNIT PATIENT OFF UNIT FOR PROCEDURE.
[2025-04-24] MEDS ORDERED: LIDOCAINE HCL MPF 1% 5ML VIAL ONE (11:31)
[2025-04-24] MEDS: ZOSYN 3.375GM+NS 50ML 50 ML ONE (11:31)
[2025-04-24] MEDS ORDERED: GLYCOPYRROLATE 0.2 MG/ML 5 ML VIAL ONE (11:32)
[2025-04-24] MEDS ORDERED: MIDAZOLAM HCL 1 MG/ML 2ML VIAL ONE (11:32)
[2025-04-24] MEDS ORDERED: NEOSTIGMINE METHYLSULFATE 1MG/ML IV ONE (11:32)
--- NOTE | 2025-04-24 11:43 | PN ---
[facility] PROGRESS NOTE Date of Service: Apr 24, 2025 Time of Service: 11:42 SUBJECTIVE: [ ] Patient reports that she came to the emergency department with a chief complaint of abdominal pain. Onset was December 2024. Patient states she was diagnosed with gallstones at that time but she was not a candidate for surgery due to being . Patient has since then has miscarried. Location is right upper quadrant. Duration is on and off. Character is described as " tugging/pulling". Pain radiates to right shoulder. There was no alleviating factors. Symptoms are aggravated with eating. Patient denies any associated nausea or vomiting at this time. ER workup consistent WBCs 13.8, left shift neutrophils 80.4%, abdominal ultrasound shows cholelithiasis with possible cholecystitis. 04/23/2025 patient was seen earlier patient waiting for surgery today versus tomorrow. She remains NPO continue with pain management. 04/24/2025 patient was seen earlier patient is waiting for surgery scheduled for lap melina. I encouraged patient early ambulation post surgery. She denied chest pain or shortness for breath. REVIEW OF SYSTEMS CONSTITUTIONAL: Denies fevers, chills, or night sweats. No unintentional weight loss reported. NEUROLOGICAL: Denies headache, amaurosis fugax, motor weakness, sensory deficit, vertigo/spinning sensation, gait abnormalities, or tremors. ENT: No hearing loss, otalgia, otorrhea, rhinitis, rhinorrhea, hoarseness, or sore throat. CARDIOVASCULAR: Denies any exertional angina, dyspnea on exertion, orthopnea, paroxysmal nocturnal dyspnea, palpitations, life-threatening arrhythmias, claudication. PULMONARY: Denies any shortness of breath, cough, phlegm/sputum, hemoptysis, pleuritic chest pain. SLEEP: Denies morning headaches, daytime somnolence or napping. Denies difficulty falling asleep, staying asleep, waking from sleep. Denies knowledge of snoring. GASTROINTESTINAL: Denies any type of dysphagia to either liquids or solids. Denies nausea, vomiting, pyrosis, early satiety, abdominal pain, diarrhea, constipation, or changes in stool consistency or caliber. Denies coffee-ground emesis, hematemesis, hematochezia, or melanotic stools. GENITOURINARY: Denies frequency, urgency, nocturia, hematuria or incontinence (Storage/Irritative symptoms.) Low urinary stream, straining to void, urinary intermittency or hesitancy, splitting of the voiding stream, terminal dribbling. ENDOCRINOLOGIC: Denies polyuria, polydipsia, polyphagia or heat/cold intolerances. HEMATOLOGIC: Denies thrombophilia/previous clots, or coagulopathy/bleeding disorders. ONCOLOGIC: Denies personal history of malignancy. DERMATOLOGIC: Denies rashes or pruritus. PSYCHIATRIC: Denies any suicidal or homicidal ideation. Denies hallucinations. PHYSICAL EXAM GENERAL APPEARANCE: The patient is awake, alert, and oriented, in no acute cardiopulmonary distress. NEUROLOGICAL: Cranial nerves II-XII grossly intact. Motor is 5/5 in bilateral upper and lower extremities proximal to distal. No sensory deficits. HEENT: Face is symmetric. Pupils are equal and reactive. Extraocular movements are intact. NECK: Supple. No JVD. No thyromegaly. No submental, submandibular, pre- /postauricular, occipital or supraclavicular lymphadenopathy. CHEST: Normal chest expansion. No Telemetry. LUNGS: Absence of any rales, rhonchi or any wheezing. CARDIOVASCULAR: Regular. S1 and S2 normal. No appreciable rubs, murmurs or gallops. ABDOMEN: Soft, nontender, and nondistended. There is no rebound, voluntary guarding, or rigidity. : Deferred. No Dorman. EXTREMITIES: Non-edematous and not cyanotic. No clubbing. Good capillary refill. SKIN: No skin breakdown. Vital Signs (last 8hr) Date Time Temp Pulse Resp B/P (MAP) Pulse Ox O2 Delivery O2 Flow Rate FiO2 04/24/25 11:15 97.9 70 18 109/58 100 Room Air 04/24/25 10:05 97 Room Air* 0 21 04/24/25 08:00 97.5 74 18 120/65 97 Room Air 04/24/25 04:00 98.2 67 20 105/62 98 Room Air LABS: Laboratory: Test 04/23/25 05:48 Range/Units White Blood Count 10.8 4.8-10.8 K/uL Red Blood Count 4.34 4.00-5.50 MIL/uL Hemoglobin 12.6 12.0-16.0 g/dL Hematocrit 37.8 36-48 % Mean Corpuscular Volume 87.1 79-99 fL Mean Corpuscular Hemoglobin 29.0 27.0-33.0 pg Mean Corpuscular Hemoglobin Concent 33.3 32.0-36.0 g/dL Red Cell Distribution Width 13.1 11.0-15.5 % Platelet Count 282 130-400 K/uL Mean Platelet Volume 9.7 7.5-10.5 fL Immature Granulocyte % (Auto) 0.2 0-1 % Neutrophils (%) (Auto) 74.5 40.0-77.0 % Lymphocytes (%) (Auto) 14.0 L 21.0-51.0 % Monocytes (%) (Auto) 9.5 3.0-13.0 % Eosinophils (%) (Auto) 1.3 0.0-8.0 % Basophils (%) (Auto) 0.5 0.0-5.0 % Neutrophils # (Auto) 8.1 H 1.8-7.7 K/uL Lymphocytes # (Auto) 1.5 1.0-4.8 K/uL Monocytes # (Auto) 1.0 0.1-1.0 K/uL Eosinophils # (Auto) 0.14 0.00-0.70 K/uL Basophils # (Auto) 0.05 0.00-0.20 K/uL Absolute Immature Granulocyte (auto 0.02 0-1 K/uL Nucleated Red Blood Cells 0.0 0.0-0.19 % Sodium Level 137 136-145 mmol/L Potassium Level 3.6 3.5-5.1 mmol/L Chloride Level 101 101-111 mmol/L Carbon Dioxide Level 24 21-32 mmol/L Blood Urea Nitrogen 9 7-18 mg/dL Creatinine 0.7 0.5-1.0 mg/dL Glomerular Filtration Rate Calc 121 >90 mL/min Random Glucose 80 70-105 mg/dL Total Calcium 9.0 8.5-10.1 mg/dL Phosphorus Level 3.5 2.5-4.9 mg/dL Magnesium Level 2.00 1.80-2.40 mg/dL Current Medications Medications (Trade) Dose Ordered Sig/Jorge L Route PRN Reason Start Time Stop Time Status Last Admin Dose Admin Acetaminophen (TYLenol 325MG TAB) 650 mg Q6H PRN PO TEMPERATURE GREATER THAN 101.5 04/22/25 04:00 05/22/25 03:59 Famotidine (Pepcid 20mg Vial) 20 mg DAILY IV 04/22/25 09:00 05/22/25 08:59 04/24/25 10:44 20 MG Hydralazine HCl (APRESOLine 20MG INJ) 10 mg Q6H PRN IV For:SBP above 160;DBP above 90 04/22/25 04:00 05/22/25 03:59 Lactated Ringer's 1,000 ml @ 75 mls/hr [id number] IV 04/22/25 04:00 05/22/25 03:59 04/24/25 10:48 75 MLS/HR Morphine Sulfate (morPHINE 4MG SYG) 4 mg Q4H PRN IVP SEVERE PAIN (7-10) 04/22/25 04:00 04/29/25 03:59 04/23/25 20:24 4 MG Ondansetron HCl (zoFRAN 4MG INJ) 4 mg Q6H PRN IV NAUSEA/VOMITING 04/22/25 04:00 05/22/25 03:59 04/23/25 20:23 4 MG Piperacillin Sod/ Tazobactam Sod (Zosyn 3.375gm+NS 50ml) 3.375 gm Q8H IV 04/22/25 04:00 05/02/25 03:59 04/24/25 11:31 3.375 GM DIAGNOSTICS / RADIOLOGY: [ ] ASSESSMENT: [ ] Acute Cholelithiasis, POA Leukocytosis, POA Suspected cholecystitis PLAN: [ ] Admit; medical floor development consultant General surgery Service. Diet; NPO IVF: LR at 75 ml/hr Procedure lap melina scheduled for today Antibiotics Zosyn IV 3.375 g every 8 hours Microbiology blood culture so far negative Encouraged patient early ambulation and deep breathing exercise postprocedure. Ongoing surveillance we will replace electrolytes as per protocol to keep potassium above 4.0 magnesium above 2.0 Labs CBC CMP magnesium. GI prophylaxis, famotidine DVT prophylaxis, Maximus's and SCDs Further orders as per response to treatment All questions addressed ATTESTATION BY PHYSICIAN I have seen and examined the patient. I reviewed the documentation, medical decision making, and treatment plan as noted by the mid-level provider above. I agree with the findings and plan of care. KATHY MALDONADO MD, ELIZABETH NP Apr 24, 2025 11:43
--- NOTE | 2025-04-24 12:02 | NUR ---
NURSING OBSERVATION PATIENT OFF UNIT UNABLE TO ASSESS NURSING OBSERVATION Addendum: 04/24/25 at 1203 by LYNDA SILVA RN RN Amended: Links added.
[2025-04-24] MEDS: INDOCYANINE GREEN 25 MG VIAL IJ ONE (12:15)
--- NOTE | 2025-04-24 14:33 | OP ---
Operative Note: DATE OF PROCEDURE: 04/24/25 SURGEON: JADE MELTON DO METEOROLOGY PROFESSOR: None ANESTHESIA: General ANESTHESIOLOGIST/METAL SPINNER: DM Angel PREOPERATIVE DIAGNOSIS: Acute cholecystitis POSTOPERATIVE DIAGNOSIS: Acute cholecystitis SYNOPSIS: None PROCEDURE: Robotic assisted laparoscopic cholecystectomy ESTIMATED BLOOD LOSS: 15 cc INDICATIONS: This is a 30-year-old female with a persistent right upper quadrant abdominal pain. She had no leukocytosis or LFT abnormalities. Imaging showed cholelithiasis. She had a HIDA scan which showed nonfilling of the gallbladder consistent with acute cholecystitis. I recommended laparoscopic robotic cholecystectomy to prevent further episodes and resolve this current episode. I discussed the procedure with the patient in detail. All questions were answered. The patient and her who was at bedside expressed understanding and agreement with the plan. DESCRIPTION OF PROCEDURE: Patient was placed on the operating table in the supine position with arms tucked. After adequate sedation the patient was intubated by anesthesia. Perioperative antibiotics were given. The patient's abdomen was prepped and draped in the usual sterile fashion. A transverse supraumbilical skin incision was made and dissection was carried down to the level of the fascia. The fascia was elevated with Ted clamps and incised. The peritoneum was entered bluntly and a 12 mm balloon Parry port was placed. The abdomen was insufflated and the patient tolerated insufflation well. A camera was inserted and all 4 quadrants of the abdomen were inspected. No apparent gross abnormality was seen as well as no evidence of inadvertent injury on entry. Three robotic ports were placed in the left and right upper quadrant under direct visualization. The patient was placed in head up and right side up position. The robot was docked. The gallbladder was found to be hydropic. Size small hole was made in the fundus and the gallbladder was suctioned deco mpressed. The gallbladder was grasped at its fundus and retracted cephalad. Thin adhesions to the duodenum were taken down bluntly. Once the Albarran's pouch was visualized dissection was carried out around the hepatocystic triangle until a single ductal structure was seen exiting the tapering Albarran's pouch. After critical view was achieved the cystic artery was serially clipped and ligated and the cystic duct was serially clipped and ligated. The gallbladder was removed from the fossa using electrocautery and placed in an Endo Catch bag for later retrieval. The liver was inspected for hemostasis. Small bleeding edges of the liver were cauterized. Once hemostasis was achieved the right upper quadrant was irrigated with sterile saline. The robot was undocked. The area was again checked and found to be hemostatic. The robotic ports were removed under direct visualization and found to be hemostatic. The gallbladder was removed and handed off for routine pathology. The fascia of the 12 mm port site was approximated using a single [id number] suture of 0 Vicryl. The port sites were irrigated with saline. The skin was approximated with 4-0 Monocryl in a subcuticular fashion. The wounds were dressed with Dermabond. All instrument, needle, and sponge counts were correct at the end of the procedure. The patient tolerated the procedure well. The patient was aroused from sedation, extubated, and transferred to the postanesthesia care unit in good condition. JADE MELTON DO Apr 24, 2025 14:33
--- NOTE | 2025-04-24 15:00 | NUR ---
UNIT ARRIVAL RECEIVED PATIENT FROM PACU NURSE SARA. S/P SANTINO SHARP WITH DR. MELTON. PATIENT RESTING COMFORTABLY. NO SIGNS OF DISTRESS NOTED. VITALS WNL. 4 INCISIONS NOTED TO ABDOMINAL AREA. DERMABOND CLEAN DRY AND INTACT NO DRAINAGE NO REDNESS NOTED.
[2025-04-24 15:26] LABS: ASPARTATE AMINOTRANSFERASE 61.0 U/L (10-37); TOTAL PROTEIN, SERUM 7.7 g/dL (6.0-8.3)
[2025-04-25] VITALS: BP 102/56; PULSE 67; RESP 20; TEMP 97.6
[2025-04-25 03:57] LABS: IMMATURE GRANULOCYTE ABSOLUTE 0.08 K/uL (0-1); NUCLEATED RED BLOOD CELLS 0.0 % (0.0-0.19); PLATELET COUNT (AUTO) 384 K/uL (130-400); RED BLOOD CELL COUNT(AUTO) 4.01 MIL/uL (4.00-5.50); RED CELL DISTRIBUTION WIDTH 13.2 % (11.0-15.5); WHITE BLOOD COUNT (AUTO) 10.9 K/uL (4.8-10.8)
[2025-04-25 04:00] VITALS: BP 111/76; PULSE 76; RESP 20; TEMP 97.5
[2025-04-25 04:06] LABS: ASPARTATE AMINOTRANSFERASE 26.0 U/L (10-37); CREATININE 0.6 mg/dL (0.5-1.0); GLOMERULAR FILTR. RATE CALC 125.0 mL/min (>90); GLUCOSE,RANDOM 119.0 mg/dL (70-105); SODIUM SERUM 137.0 mmol/L (136-145); TOTAL PROTEIN, SERUM 7.6 g/dL (6.0-8.3); UREA NITROGEN, BLOOD 6.0 mg/dL (7-18)
[2025-04-25 08:00] VITALS: BP 128/53; PULSE 76; RESP 18; TEMP 97.8
[2025-04-25 08:28] VITALS: O2SAT 98
--- NOTE | 2025-04-25 11:23 | DS ---
Discharge Summary Hospital Course Summary: Patient reports that she came to the emergency department with a chief complaint of abdominal pain. Onset was December 2024. Patient states she was diagnosed with gallstones at that time but she was not a candidate for surgery due to being . Patient has since then has miscarried. Location is right upper quadrant. Duration is on and off. Character is described as " tugging/pulling". Pain radiates to right shoulder. There was no alleviating factors. Symptoms are aggravated with eating. Patient denies any associated nausea or vomiting at this time. ER workup consistent WBCs 13.8, left shift neutrophils 80.4%, abdominal ultrasound shows cholelithiasis with possible cholecystitis. 04/23/2025 patient was seen earlier patient waiting for surgery today versus tomorrow. She remains NPO continue with pain management. 04/24/2025 patient was seen earlier patient is waiting for surgery scheduled for lap kisha. I encouraged patient early ambulation post surgery. She denied chest pain or shortness for breath. 05/17/2025 patient postop day one status post lap kisha recuperating well tolerating diet no nausea no vomiting no abdominal pain. Patient is hemodynamically stable for discharge cleared by surgery patient to follow-up with surgery clinic one-week postoperative visit. [id number] Tylenol for pain as directed advised patient no heavy lifting greater than 10 lb for four weeks encouraged to ambulate at home. To avoid greasy foods. All questions and concerns addressed Preschool Teacher'S Assistant(s): REASON: abd pain ORDERING PHYSICIAN: REBECCA SMITH PROCEDURE: [id number] - US ABDOMINAL RUQ\\LTD ADDENDUM REPORT ADDENDUM: Results were shared by telephone at 3:02am on 04-22-25 and acknowledged by FINISHING MACHINE OPERATOR AUTOMATIC EARNESTINE MANRIQUE /[place] EXAM: US Abdomen, Right Upper Quadrant. CLINICAL HISTORY: Abdominal pain. TECHNIQUE: Right upper quadrant sonography performed with image documentation. COMPARISON: Ultrasound of the right upper quadrant dated 01/21/2025. FINDINGS: LIVER: The liver is marginally increased in size, measuring 18 cm. Increased echogenicity. No mass. GALLBLADDER: The gallbladder is distended with sludge within. There is a nonmobile calculus at the gallbladder neck. Wall-thickness measures 3 mm, stable. Unable to determine Miller???s sign due to the given pain medication. COMMON BILE DUCT: No dilation. 4 mm. PANCREAS: The visualized pancreas appears within normal limits. The distal pancreas is obscured by bowel gas. RIGHT KIDNEY: Unremarkable. Normal renal contours. No renal mass or calculus. No hydronephrosis. Measures 11.4 x 3.9 x 4.2 cm. IMPRESSION: Cholelithiasis with questionable acute cholecystitis. Mild interval worsening in this finding compared to the previous ultrasound. Recommend a HIDA scan for further evaluation. Borderline hepatomegaly with fatty changes. REASON: abdominal pain, cholelithiasis ORDERING PHYSICIAN: ANSELMO MURCIA PROCEDURE: HIDAWO - NM HIDA WO EF/CCK Examination Hepatobiliary study History abdominal pain, cholelithiasis (Hx) / abdominal pain, cholelithiasis, Static Images (DICOM Hx) (DICOM Hx) Technique Tc-99m mebrofenin were administered intravenously followed by acquisition of planar images of the abdomen. Findings Following administration of radiotracer, there is prompt appearance of normal hepatic contours, followed by appearance of activity in unremarkable appearing bile ducts. There is nonvisualization of the gallbladder suggesting acute cholecystitis. IMPRESSION: 1. Nonvisualization of the gallbladder suggesting acute cholecystitis. /[place] Procedure(s): Operative Note: DATE OF PROCEDURE: 04/24/25 SURGEON: JADE MELTON DO VERIFICATION ENGINEER: None ANESTHESIA: General ANESTHESIOLOGIST/BACK HOE MACHINE OPERATOR: DM Angel PREOPERATIVE DIAGNOSIS: Acute cholecystitis POSTOPERATIVE DIAGNOSIS: Acute cholecystitis SYNOPSIS: None PROCEDURE: Robotic assisted laparoscopic cholecystectomy ESTIMATED BLOOD LOSS: 15 cc INDICATIONS: This is a 30-year-old female with a persistent right upper quadrant abdominal pain. She had no leukocytosis or LFT abnormalities. Imaging showed cholelithiasis. She had a HIDA scan which showed nonfilling of the gallb ladder consistent with acute cholecystitis. I recommended laparoscopic robotic cholecystectomy to prevent further episodes and resolve this current episode. I discussed the procedure with the patient in detail. All questions were answered. The patient and her who was at bedside expressed understanding and agreement with the plan. DESCRIPTION OF PROCEDURE: Patient was placed on the operating table in the supine position with arms tucked. After adequate sedation the patient was intubated by anesthesia. Perioperative antibiotics were given. The patient's abdomen was prepped and draped in the usual sterile fashion. A transverse supraumbilical skin incision was made and dissection was carried down to the level of the fascia. The fascia was elevated with Ted clamps and incised. The peritoneum was entered bluntly and a 12 mm balloon Parry port was placed. The abdomen was insufflated and the patient tolerated insufflation well. A camera was inserted and all 4 quadrants of the abdomen were inspected. No apparent gross abnormality was seen as well as no evidence of inadvertent injury on entry. Three robotic ports were placed in the left and right upper quadrant under direct visualization. The patient was placed in head up and right side up position. The robot was docked. The gallbladder was found to be hydropic. Size small hole was made in the fundus and the gallbladder was suctioned decompressed. The gallbladder was grasped at its fundus and retracted cephalad. Thin adhesions to the duodenum were taken down bluntly. Once the Albarran's pouch was visualized dissection was carried out around the hepatocystic triangle until a single ductal structure was seen exiting the tapering Albarran's pouch. After critical view was achieved the cystic artery was serially clipped and ligated and the cystic duct was serially clipped and ligated. The gallbladder was removed from the fossa using electrocautery and placed in an Endo Catch bag for later retrieval. The liver was inspected for hemostasis. Small bleeding edges of the liver were cauterized. Once hemostasis was achieved the right upper quadrant was irrigated with sterile saline. The robot was undocked. The area was again checked and found to be hemostatic. The robotic ports were removed under direct visualization and found to be hemostatic. The gallbladder was removed and handed off for routine pathology. The fascia of the 12 mm port site was approximated using a single ttasrh-[id number] suture of 0 Vicryl. The port sites were irrigated with saline. The skin was approximated with 4-0 Monocryl in a subcuticular fashion. The wounds were dressed with Dermabond. All instrument, needle, and sponge counts were correct at the end of the procedure. The patient tolerated the procedure well. The patient was aroused from sedation, extubated, and transferred to the postanesthesia care unit in good condition. JADE MELTON DO Assessment/Plan: Discharged dx's: [ ] Acute Cholelithiasis, POA Leukocytosis, POA Suspected cholecystitis PLAN: [ ] ADMISSION DATE: DISCHARGE DATE: 04/25/2025 DISPOSITION: Home CONDITION: Stable BUFFER NICKEL(S): General surgeon FOLLOW UP APPOINTMENT(S): DR Cosme one wk post operative visit PROCEDURES: Kisha IMAGING (S) report attached to summary : MICROBIOLOGY: report attached to summary; ACTIVITY: Ad mirian HOME MEDICATIONS none NEW MEDICATIONS [id number] Tylenol as directed for pain TEACHING: No heavy lifting greater than 10 lb for four weeks keep incisions clean and dry wash with soap and water. Emergency instructions: The patient was instructed to present to the nearest Emergency Department or call 911 should their symptoms return or worsen. Discharge Instructions: GENERAL APPEARANCE: The patient is awake, alert, and oriented, in no acute cardiopulmonary distress. NEUROLOGICAL: Cranial nerves II-XII grossly intact. Motor is 5/5 in bilateral upper and lower extremities proximal to distal. No sensory deficits. HEENT: Face is symmetric. Pupils are equal and reactive. Extraocular movements are intact. NECK: Supple. No JVD. No thyromegaly. No submental, submandibular, pre- /postauricular, occipital or supraclavicular lymphadenopathy. CHEST: Normal chest expansion. No Telemetry. LUNGS: Absence of any rales, rhonchi or any wheezing. CARDIOVASCULAR: Regular. S1 and S2 normal. No appreciable rubs, murmurs or gallops. ABDOMEN: Soft, nontender, and nondistended. There is no rebound, voluntary guarding, or rigidity. : Deferred. No Dorman. EXTREMITIES: Non-edematous and not cyanotic. No clubbing. Good capillary refill. SKIN: Dermabond to small surgical incision x3 Home Medications: Discontinued Scripts #79/Iron Asp Gly/FA#1 (Prenate Elite Tablet) 20 Mg Iron-1 Mg Tablet, 1 TAB PO DAILY for 30 Days, #30 TAB 0 Refills Prov:FATEMEH SHARPE MD 01/23/25 Cephalexin Monohydrate (Keflex) 500 Mg Cap, 1 CAP PO BID for 5 Days, #10 CAP 0 Refills Prov:FATEMEH SHARPE MD 01/23/25 Time spent arranging discharge: 31-60 minutes ATTESTATION BY PHYSICIAN I have seen and examined the patient. I reviewed the documentation, medical decision making, and treatment plan as noted by the mid-level provider above. I agree with the findings and plan of care. KATHY MALDONADO MD, ELIZABETH NP Apr 25, 2025 11:23
[2025-04-25 12:00] VITALS: BP 124/56; PULSE 74; RESP 18; TEMP 98
--- NOTE | 2025-04-25 16:56 | NUR ---
PATIENT DISCHARGED PERIPHERAL IV REMOVED, CATHETER INTACT. DISCHARGE INSTRUCTIONS GIVEN. NO NEW PRESCRIPTIONS. PATIENT AWARE TO F/U WITH PCP 04/30. PATIENT AWARE TO F/U WITH DR. MELTON IN ONE WEEK. UNABLE TO OBTAIN APPT. OFFICE CLOSED. ALL QUESTIONS ANSWERED. PATIENT TAKEN DOWN BY WHEELCHAIR.
== END 2025-04-25 16:50 | disposition home or self-care (01) | DRG 419 ==
LOC: EDH 00:10 → EDHIP 00:11 → 4DH 23:30
PROVIDERS: ADMIT Internal Medicine; ATTEND Internal Medicine
PROC: 8E0W4CZ Robotic Assisted Procedure of Trunk Region, Percutaneous Endoscopic Approach (ICD-10-PCS; 2025-04-24)
PROC: 0FT44ZZ Resection of Gallbladder, Percutaneous Endoscopic Approach (ICD-10-PCS; principal; 2025-04-24 12:19)
DX: K80.00 Calculus of gallbladder with acute cholecystitis without obstruction (principal); K66.0 Peritoneal adhesions (postprocedural) (postinfection); Z51.5 Encounter for palliative care; Z86.0100 Personal history of colon polyps, unspecified; Z83.3 Family history of diabetes mellitus
CPT/HCPCS: 36415; 76705; 78226; 80048; 80053; 80076; 81001; 81025; 83605; 83690; 83735; 84100; 84145; 85025; 85610; 85730; 86850; 86900; 86901; 87040; 88304; 96374; 96375; 99285; A9537; G0378; J1100; J2250; J2270; J2405; J2543; J2704; J2710; J2795; J3010; J3490; J7030; A4215; A4216; A4222; A4223; A4600; A4649; A4930; C1769